=== PATIENT | male | born 1935 | race Hispanic/Latino ===

== ENCOUNTER 2017-12-08 20:52 | Inpatient (IN) | payer MEDICARE ==
[2017-12-08 21:03] VITALS: BMI 29.3
[2017-12-08 21:35] LABS: BASO # 0.04 K/mm3 (0.0-2.0); BASO % 0.6 % (0.0-3.0); EOS # 0.1 (0.0-0.7); EOS % 1.1 % (1.5-5.0); GRAN # 4.85 (1.4-6.5); GRAN % 74.8 % (50.0-68.0); HEMOGLOBIN 16.2 g/dL (14.0-18.0); LYMPH # 1.1 (1.2-3.4); LYMPH % 17.6 % (22.0-35.0); MEAN CELL VOLUME 85.9 fl (80.0-105.0); MEAN CORPUSCULAR HEMOGLOBIN 29.6 pg (25.0-35.0); MEAN CORPUSCULAR HGB CONC 34.5 g/dl (31.0-37.0); MEAN PLATELET VOLUME 11.1 fl (7.0-11.0); MONO # 0.4 (0.1-0.6); MONO % 5.9 % (1.0-6.0); RBC 5.47 10^6/uL (3.5-6.1); RED CELL DISTRIBUTION WIDTH 13.2 % (11.5-14.5); WHITE BLOOD COUNT 6.5 10^3/ul (4.5-11.0)
[2017-12-08 21:40] LABS: INR 1.09 (0.93-1.08); PARTIAL THROMBOPLASTIN TIME 33.3 Seconds (25.1-36.5); PROTHROMBIN TIME 12.5 SECONDS (9.4-12.5)
[2017-12-08 21:42] LABS: ALB/GLOB RATIO 1.4 (1.1-1.8); ALBUMIN 4.7 g/dL (3.0-4.8); ALT/SGPT 30 U/L (7-56); AST/SGOT 32 U/L (17-59); BLOOD UREA NITROGEN 17 mg/dL (7-21); CALCIUM 10.2 mg/dL (8.4-10.5); GFR AFRICAN-AMERICAN > 60; GFR NON-AFRICAN AMERICAN > 60
[2017-12-08 21:53] LABS: TROPONIN I 0.04 ng/mL
[2017-12-08 22:21] LABS: URINE BILIRUBIN NEGATIVE (NEGATIVE); URINE BLOOD TRACE-INTACT (NEGATIVE); URINE GLUCOSE (UA) NEGATIVE (NEGATIVE); URINE LEUKOCYTE ESTERASE NEGATIVE Leu/uL (NEGATIVE); URINE PROTEIN >=300 mg/dL (<30 mg/dL); URINE UROBILINOGEN 0.2 E.U./dL (<1 E.U./dL)
[2017-12-08 22:23] LABS: URINE APPEARANCE CLEAR (CLEAR); URINE COLOR YELLOW (YELLOW)
[2017-12-08 22:34] LABS: URINE BACTERIA MANY (NEG); URINE WBC 0 - 2 /hpf (0-6)
--- NOTE | 2017-12-08 22:57 | ED PDOC ---
Arrival/HPI - General Chief Complaint: Chest Pain Time Seen by Provider: 12/08/17 21:17 Historian: Patient - History of Present Illness Narrative History of Present Illness (Text): 12/08/17 22:53 Mark Mackay is an 81 year old male, whose past medical history includes diabetes, open heart surgery, hypertension, hyperlipidemia, and COPD, who presents to the emergency department complaining of left sided chest pain above the pace maker radiating to his back. Patient notes he was in the shower during onset of symptoms. Patient denies any fever, chills, shortness of breath, nausea, vomiting, diarrhea, neck pain, headache, dizziness or any other complaints. Time/Duration: Prior to Arrival Symptom Onset: Gradual Symptom Course: Unchanged Activities at Onset: Light Context: Home (showering) Past Medical History - Provider Review Nursing Documentation Reviewed: Yes - Tetanus Immunization Tetanus Immunization: Unknown - Cardiac Hx Cardiac Disorders: Yes Hx Hypertension: Yes Hx Pacemaker: Yes Other/Comment: CABG x 5 ways bypassed 2004 - Pulmonary Hx Respiratory Disorders: Yes Hx Asthma: Yes Hx Chronic Obstructive Pulmonary Disease (COPD): Yes Other/Comment: Smoked for 40 ears. Quit 20 ears ago. - Neurological Hx Neurological Disorder: Yes Hx Dizziness: Yes Hx Paralysis: No Hx Syncope: Yes - HEENT Hx Cataracts: Yes (RIGHT EYE(MATURE); LEFT IMMATURE) - Renal Hx Kidney Stones: Yes (SURGERY DONE) - Endocrine/Metabolic Hx Endocrine Disorders: Yes Hx Diabetes Mellitus Type 2: Yes - Hematological/Oncological Hx Blood Disorders: No Hx Blood Transfusions: No - Integumentary Hx Dermatological Disorder: No - Musculoskeletal/Rheumatological Other/Comment: "SOMETHING BETWEEN L4-5 BUT NOT A HERNIATED OR BULDGING DISC." - Gastrointestinal Hx Gastrointestinal Disorders: Yes Hx Gastroesophageal Reflux: Yes - Genitourinary/Gynecological Hx Bladder Cancer: Yes - Psychiatric Hx Psychophysiologic Disorder: No Hx Substance Use: No - Surgical History Hx Cardiac Catheterization: Yes Hx Coronary Artery Bypass Graft: Yes (X5) Hx Orthopedic Surgery: Yes ((SEE COMMENT)) Hx Tonsillectomy: Yes Other/Comment: cataract - Anesthesia Hx Anesthesia: Yes Hx Anesthesia Reactions: No Hx Malignant Hyperthermia: No - Suicidal Assessment Feels Threatened In Home Enviroment: No Family/Social History - Physician Review Nursing Documentation Reviewed: Yes Family/Social History: Unknown Family HX Smoking Status: Former Smoker Hx Alcohol Use: No Hx Substance Use: No Hx Substance Use Treatment: No Allergies/Home Meds Allergies/Adverse Reactions: Allergies iodine Allergy (Severe, Verified 12/08/17 21:02) RASH pneumococcal vaccine Allergy (Severe, Verified 12/08/17 21:02) SWELLING Tetanus Vaccines and Toxoid [Tetanus Vaccines & Toxoid] Allergy (Severe, Verified 12/08/17 21:02) SWELLING Home Medications: Home Meds Medication Instructions Recorded Confirmed Aspirin [Aspirin EC] 81 mg PO DAILY 01/09/15 12/08/17 Budesonide/Formoterol Fumarate 1 puff IH BID 01/09/15 12/08/17 [Symbicort 80-4.5 Mcg Inhaler] Docusate [Colace] 50 mg PO PRN PRN 01/09/15 12/08/17 Omeprazole [Prilosec] 20 mg PO DAILY 01/09/15 12/08/17 Tiotropium [Spiriva] 18 mcg IH DAILY 01/09/15 12/08/17 Gabapentin [Neurontin] 300 mg PO BID 02/13/16 12/08/17 Loratadine [Claritin] 10 mg PO DAILY 03/03/16 12/08/17 Simvastatin [Zocor] 20 mg PO DAILY 03/03/16 12/08/17 metFORMIN [glucOPHAGE] 500 mg PO BID 03/03/16 12/08/17 ARIPiprazole [Abilify] 10 mg PO DAILY 06/24/16 12/08/17 Lisinopril [Zestril] 0.5 tab PO HS 08/31/17 12/08/17 Metoprolol Tartrate [Lopressor] 0.5 tab PO DAILY 08/31/17 12/08/17 Review of Systems - Physician Review All systems were reviewed & negative as marked: Yes - Review of Systems Constitutional: Normal Eyes: Normal ENT: Normal Respiratory: Normal. absent: SOB Cardiovascular: Chest Pain (left sided) Gastrointestinal: Normal. absent: Abdominal Pain, Diarrhea, Nausea, Vomiting Genitourinary Male: Normal. absent: Dysuria, Frequency, Hematuria, Urinary Output Changes Musculoskeletal: Normal, Back Pain. absent: Neck Pain Skin: Normal. absent: Rash Neurological: Normal. absent: Headache, Dizziness Endocrine: Normal Hemo/Lymphatic: Normal Psychiatric: Normal Physical Exam Vital Signs Reviewed: Yes Vital Signs Temp Pulse Resp BP Pulse Ox 12/09/17 00:48 60 18 137/93 H 95 12/08/17 23:00 62 18 138/89 96 12/08/17 22:37 67 146/92 H 12/08/17 21:08 97.8 F 62 18 136/97 H 96 Temperature: Afebrile Blood Pressure: Normal Pulse: Regular Respiratory Rate: Normal Appearance: Positive for: Well-Appearing, Non-Toxic, Comfortable Pain Distress: None Mental Status: Positive for: Alert and Oriented X 3 - Systems Exam Head: Present: Atraumatic, Normocephalic Pupils: Present: PERRL Extroacular Muscles: Present: EOMI Conjunctiva: Present: Normal Mouth: Present: Moist Mucous Membranes Neck: Present: Normal Range of Motion Respiratory/Chest: Present: Clear to Auscultation, Good Air Exchange. No: Respiratory Distress, Accessory Muscle Use Cardiovascular: Present: Regular Rate and Rhythm, Normal S1, S2. No: Murmurs Abdomen: Present: Normal Bowel Sounds. No: Tenderness, Distention, Peritoneal Signs Back: Present: Normal Inspection Upper Extremity: Present: Normal Inspection. No: Cyanosis, Edema Lower Extremity: Present: Normal Inspection. No: Edema Neurological: Present: GCS=15, CN II-XII Intact, Speech Normal Skin: Present: Warm, Dry, Normal Color. No: Rashes Psychiatric: Present: Alert, Oriented x 3, Normal Insight, Normal Concentration Medical Decision Making ED Course and Treatment: 12/08/17 22:59 Impression: 81 year old female presents to the emergency department complaining of left sided chest pain radiating to the back. Plan: -- EKG -- Cardiac Enzyme -- Lipid panal -- Chest X-ray -- Abilify -- ecotrin -- glucOPHAGE -- HumALOG -- Lopressor -- Neurontin -- Spriva -- Zestril -- Reassess and disposition Progress Notes: case d/w dr hernandez will tle obs for cp chest x ray neg 12/09/17 04:02 - Lab Interpretations Lab Results: 12/08/17 21:20 12/08/17 21:20 Lab Results 12/08/17 22:15: Urine Color Yellow, Urine Appearance Clear, Urine pH 6.0, Ur Specific [place] >= 1.030, Urine Protein >=300 H, Urine Glucose (UA) Negative, Urine Ketones 40 H, Urine Blood Trace-intact H, Urine Nitrate Negative, Urine Bilirubin Negative, Urine Urobilinogen 0.2, Ur Leukocyte Esterase Negative, Urine RBC 2 - 5, Urine WBC 0 - 2, Ur Epithelial Cells None, Urine Bacteria Many , Urine Other Uyeast 12/08/17 21:20: Triglycerides 68, Cholesterol 135, LDL Cholesterol Direct 64, HDL Cholesterol 49 12/08/17 21:20: PT 12.5, INR 1.09 H, APTT 33.3 12/08/17 21:20: Sodium 139, Potassium 4.3, Chloride 100, Carbon Dioxide 26, Anion Gap 17, BUN 17, Creatinine 0.8, Est GFR ( Amer) > 60, Est GFR (Non- Af Amer) > 60, Random Glucose 184 H, Calcium 10.2, Magnesium 1.7, Total Bilirubin 0.9, AST 32, ALT 30, Alkaline Phosphatase 95, Lactate Dehydrogenase 485, Total Creatine Kinase 34 L, Troponin I 0.04 D, Total Protein 8.0, Albumin 4.7, Globulin 3.3, Albumin/Globulin Ratio 1.4 12/08/17 21:20: WBC 6.5 D, RBC 5.47, Hgb 16.2, Hct 47.0, MCV 85.9, MCH 29.6, MCHC 34.5, RDW 13.2, Plt Count 154, MPV 11.1 H, Gran % 74.8 H, Lymph % (Auto) 17.6 L, [place] % (Auto) 5.9, Eos % (Auto) 1.1 L, Baso % (Auto) 0.6, Gran # 4.85, Lymph # (Auto) 1.1 L, [place] # (Auto) 0.4, Eos # (Auto) 0.1, Baso # (Auto) 0.04 - RAD Interpretation Radiology Orders: 12/08/17 21:18 CHEST PORTABLE [RAD] Stat - EKG Interpretation EKG Interpretation (Text): 12/09/17 04:03 100 pace rhythm rate 60 - Medication Orders Current Medication Orders: Aripiprazole (Abilify) 10 mg PO DAILY [facility] PRN Reason: Protocol Aspirin (Ecotrin) 81 mg PO DAILY [facility] Atorvastatin Calcium (Lipitor) 10 mg PO DIN [facility] Gabapentin (Neurontin) 300 mg PO BID [facility] PRN Reason: Protocol Last Admin: 12/08/17 23:00 Dose: 300 mg Re-Assess: Reassess Psych Meds Document 12/09/17 00:00 FDE (Rec: 12/09/17 01:46 FDE [id number]) Reassess Psych Med Effective Insulin Human Lispro (Humalog Med) 0 units SC ACHS [facility] PRN Reason: Protocol Lisinopril (Zestril) 10 mg PO HS [facility] Metformin HCl (Glucophage) 500 mg PO BID [facility] Metoprolol Tartrate (Lopressor) 25 mg PO DAILY [facility] Tiotropium [place] (Spiriva) 18 mcg IH DAILY [facility] Discontinued Medications Lisinopril (Zestril) 0.5 mg PO HS [facility] Metoprolol Tartrate (Lopressor) 12.5 mg PO STAT STA Stop: 12/08/17 22:23 Last Admin: 12/08/17 22:37 Dose: 12.5 mg MAR Pulse and Blood Pressure Document 12/08/17 22:37 AD (Rec: 12/08/17 22:37 AD [id number]) Pulse Pulse Rate (60-90) 67 Blood Pressure Blood Pressure (100/60-150/90) 146/92 Metoprolol Tartrate (Lopressor) 0.5 mg PO DAILY [facility] - Scribe Statement The provider has reviewed the documentation as recorded by the Scribe Documented by Alyssa Solitario acting as a scribe for Anthony Mccarty MD. Disposition/Present on Arrival - Present on Arrival Any Indicators Present on Arrival: No History of DVT/PE: No History of Uncontrolled Diabetes: No Urinary Catheter: No History of Decub. Ulcer: No History Surgical Site Infection Following: None - Disposition Have Diagnosis and Disposition been Completed?: Yes Diagnosis: Chest pain Disposition: HOSPITALIZED Disposition Time: 22:00 Condition: FAIR
[2017-12-09 00:58] LABS: HDL CHOLESTEROL 49 mg/dL (29-60)
[2017-12-09 01:09] LABS: LDL CHOLESTEROL 64 mg/dL (0-129)
--- NOTE | 2017-12-09 04:11 | HP ---
HISTORY OF PRESENT ILLNESS: The patient is 81 years old. He states when he went to take shower when he was trying to clean his back, he suddenly developed a left-sided chest pain around his pacemaker site. Since then, he has been worried that there is some malfunctioning of his pacemaker. He developed chest pain, probably got worried and when he checked his blood pressure that he found was 160. He called the office and they advised him to take extra lisinopril that he took around 6:00 o'clock. I got a call around 7:30 that his chest pain has increased and his blood pressure has gone up to 190/110, so I advised him to go to emergency room for further evaluation and pacemaker interrogation. Denies any fever or chills. No nausea or vomiting. No cough or congestion. PAST MEDICAL HISTORY: Significant for; 1. Coronary artery disease, status post open heart surgery almost 15 years ago. 2. Epz-qoglsuh-xuqrhecgx diabetes. 3. Degenerative disk disease. 4. History of hyphema of the nose. 5. Lumbosacral radiculopathy. 6. Hypertension. 7. Multiple episodes of syncope and was found to have sick sinus syndrome, so he had pacemaker placed. 8. Hyperlipidemia. ALLERGY: HE IS ALLERGIC TO IODINE, PNEUMOCOCCAL VACCINE, TETANUS VACCINE AND TOXOID. MEDICATIONS AT HOME: The patient is on metformin 500 twice a day, Abilify 10 mg daily, Spiriva, simvastatin 20 mg daily, Prilosec 20 mg daily, metoprolol 25 daily, loratadine 10 mg daily, gabapentin 300 twice a day, Colace 50 mg daily and aspirin 81 daily. SOCIAL HISTORY: He is . Lives with his . He used to be a heavy smoker for almost 40 years and he quit 25 years ago. Socially drinks. REVIEW OF SYSTEMS: Significant for left-sided chest pain and feels lightheaded. PHYSICAL EXAMINATION: GENERAL: He is awake, alert, oriented, communicative. VITAL SIGNS: He is afebrile, pulse 62, respirations 18, blood pressure 146/92. LUNGS: Bilateral good airflow. No rhonchi or crackle. HEART: S1 and S2 audible. No murmur. ABDOMEN: Soft, obese, nontender. No rebound. No guarding. NEUROLOGIC: He is awake, alert, oriented, communicative. LABORATORY EXAM: WBC is 6.5, hemoglobin is 16.2, hematocrit 47, platelet 154. PT 12.5, INR 1.09, PTT 33.3. Chemistry: Sodium 139, potassium 3.3, chloride 100, CO2 of 26, BUN 17, creatinine 0.8, blood sugar of 184. LFTs are within normal limits. CPK 34, troponin 0.04. Urinalysis is unremarkable. X-ray chest is unremarkable. I got a call from that his pacemaker was interrogated and seems to be functioning well. ASSESSMENT: 1. Chest pain. Rule out underlying coronary ischemia. 2. History of coronary artery disease, status post open heart surgery. 3. Insulin-dependent diabetes. 4. Hypertension. 5. Hyperlipidemia. PLAN: The patient will be placed in observation. We will monitor his blood pressure. Will be evaluated by Dr. Goznalez in the a.m. We will follow up his troponin and we will reevaluate in the a.m. If the patient remains stable, possible early discharge. Talia Tom MD
[2017-12-09 07:03] LABS: FREE T4 1.05 ng/dL (0.78-2.19)
[2017-12-09] MEDS ORDERED: Insulin Lispro (humaLOG) MEDIUM Coverage SC SCH (07:30)
[2017-12-09 07:31] LABS: ALB/GLOB RATIO 1.3 (1.1-1.8); ALBUMIN 3.6 g/dL (3.0-4.8); ALT/SGPT 24 U/L (7-56); AST/SGOT 69 U/L (17-59); BLOOD UREA NITROGEN 15 mg/dL (7-21); CALCIUM 9.5 mg/dL (8.4-10.5); GFR AFRICAN-AMERICAN > 60; GFR NON-AFRICAN AMERICAN > 60; TROPONIN I 7.56 ng/mL
--- NOTE | 2017-12-09 08:40 | RAD ---
HISTORY: cp COMPARISON: 06/26/2016 FINDINGS: LUNGS: No active pulmonary disease. PLEURA: No significant pleural effusion identified, no pneumothorax apparent. CARDIOVASCULAR: Mild cardiomegaly. Single lead pacemaker. OSSEOUS STRUCTURES: Sternal wires VISUALIZED UPPER ABDOMEN: Normal. OTHER FINDINGS: None. IMPRESSION: No active disease.
[2017-12-09] MEDS ORDERED: Potassium Chloride 20 mEq ER Tab PO ONE (08:53)
[2017-12-09] MEDS: Enoxaparin 80 mg Syringe SC SCH ×2 (08:56→19:57)
[2017-12-09] MEDS: Insulin Reg-LOW-Coverage SC SCH ×3 (11:42→22:33)
[2017-12-09] MEDS ORDERED: Pantoprazole 40 mg EC Tab PO ONE (13:06)
[2017-12-09] MEDS: Tiotropium 18 mcg Cap For Inhalation IH SCH (13:32)
--- NOTE | 2017-12-09 15:31 | PN ---
DATE: SUBJECTIVE: He was admitted with high blood pressure and chest pain. Evaluated by the addressograph operator. Plan for cardiac cath tomorrow. His pacemaker was interrogated and found to be working and functioning normal. PHYSICAL EXAMINATION: VITAL SIGNS: He is afebrile, pulse 63, respirations 16, blood pressure 145/98. LUNGS: Bilateral good airflow. No rhonchi or crackle. HEART: S1 and S2 audible. ABDOMEN: Soft. Nontender. Obese. No hepatosplenomegaly. NEUROLOGIC: He is awake, alert, oriented, communicative. EXTREMITIES: Bilateral legs, no edema. LABORATORY EXAM: Sodium 142, potassium 3.7, chloride 105, CO2 of 29, BUN 15, creatinine 0.8, blood sugar of 128. First troponin was 0.04, followup is 7.56. ASSESSMENT: 1. Ahg-AE-xmjoddtqn myocardial infarction. 2. Hypertension. 3. Hyperlipidemia. 4. Coronary artery disease, status post open heart surgery. 5. History of sick sinus syndrome, status post pacemaker placement. PLAN: The patient is on Plavix, Lovenox, beta talha, Lipitor. He is scheduled for a cardiac cath in the a.m. Talia Tom MD
--- NOTE | 2017-12-09 15:50 | CARD ---
APPROVED REPORT EKG Measurement Heart [id number] P50 [id number] <Conclusion> Electronic ventricular pacemaker: V. Paced with 1 PVC.
--- NOTE | 2017-12-09 20:17 | CON ---
DATE: CONSULT SERVICE: Cardiology. REASON FOR CONSULTATION: Chest pain, unstable angina, acute coronary syndrome, non-ST segment myocardial infarction, coronary artery disease, status post CABG, status post permanent pacemaker. BRIEF CLINICAL HISTORY: This is an 81-year-old , used to follow at the [facility], history of hypertension, hyperlipidemia, coronary artery disease, status post 5-vessel bypass 12 to 13 years ago at [facility], [place] by Dr. Prakash Taylor, history of sick sinus syndrome, complete heart block on 06/24/2016, status post permanent pacemaker, who remained fairly stable until yesterday afternoon at 6 o'clock, he felt sharp pain at the pacemaker site. Blood pressure was checked, found to be 160, contacted Dr. Tom, advised to give an extra dose of lisinopril. Later on, the blood pressure did not improve and blood pressure went to 190/110 as well as the chest pain, so advised to come to the emergency room to check it out. Pacemaker interrogation was done, found to be perfectly normal, single chamber VVI, 90% pacing, no episodes of arrhythmia noted. Battery life is 8 years. First troponin was negative. Repeat troponin is 7.5. The patient denies any episode of chest pain now. PAST MEDICAL HISTORY: Significant for hypertension, hyperlipidemia, type 2 diabetes, coronary artery disease, status post coronary artery bypass surgery, 4-5 vessels bypass done at [facility], [place] by Dr. Prakash Taylor, status post permanent pacemaker on 06/25/2016, single chamber VVI after having complete heart block. [employer] Adapta VVIR was done. PREVIOUS CARDIAC WORKUP: As follows: The patient had a stress test on 01/12/2015 that shows essentially normal myocardial perfusion study, ejection fraction 74% dated 01/12/2015. The patient was attempted JULIETA, but could not be completed because of small difficulty to assess the severity of the mitral valve area. Later on, regular echo was done that showed normal chamber size, ejection fraction 60-65%, trace aortic regurgitation, mild aortic stenosis with aortic sclerosis. Moderate mitral valve stenosis, valve area 1.2 cm2, mild mitral regurgitation, RV systolic pressure 38, mild pulmonary insufficiency. Right ventricular systolic pressure of 38 dated 03/06/2016. As mentioned, history of coronary artery bypass surgery, 4-5 vessel bypass at [facility] by Dr. Prakash Taylor. SOCIAL HISTORY: Denies any history of alcohol abuse, , lives with . Used to smoke, quit 40 years ago, almost 40-pack year history. Socially drinks. No history of substance abuse. CURRENT MEDICATIONS: The patient at home is taking metformin 500 b.i.d., Abilify 10 mg daily, Spiriva, simvastatin 20 mg, Prilosec, metoprolol, loratadine, gabapentin, Colace and aspirin. ALLERGIES: PNEUMOCOCCAL VACCINE, TETANUS VACCINE AND TOXOID. REVIEW OF SYSTEMS: As per HPI. PHYSICAL EXAMINATION: As follows: GENERAL: Height of the patient 5 feet 7 inches, weight of the patient 182 pounds, body mass index 30 kg/m2. Rest of the examination as follows: VITAL SIGNS: Temperature afebrile, heart rate 64, blood pressure 110/73. HEENT: PERRLA. Extraocular muscles intact. NECK: Supple. No carotid bruit or thyromegaly. CHEST: Clear to auscultation. HEART: S1, S2, regular. ABDOMEN: Soft. EXTREMITIES: Clubbing and cyanosis negative. EKG showed V-paced rhythm, underlying normal sinus. LABORATORY DATA: Blood workup, WBC 6.5, hemoglobin , hematocrit 47, platelet count 154. Chemistry shows sodium 142, potassium 3.7, chloride 105, carbon dioxide 29, anion gap of 13, BUN 15, creatinine 0.8. Random glucose 128, troponin 7.56. IMPRESSION: Non-ST segment myocardial infarction, acute coronary syndrome, unstable angina, diabetes, hypertension, hyperlipidemia, obesity, increased body mass index, history of coronary artery disease, history of coronary artery bypass graft 12 to 13 years ago, 4-5 vessels bypass at [facility], [place] by Dr. Prakash Taylor. History of complete heart block on 06/24/2016, status post single chamber VVI pacemaker. Last night, the patient admitted with pacemaker site chest pain, pacemaker interrogation done, 99% pacing. No issues, battery life 8 years. No tachyarrhythmia was noted. No issues. RECOMMENDATION: We will start aspirin, Plavix, give Lovenox 2 doses to treat unstable angina and cardiac catheterization tomorrow. Discussed with the patient's , Cony Mackay. The patient is scheduled for cardiac catheterization tomorrow at 11 a.m. We will keep n.p.o. after 12 midnight and we will call the [facility] [place] to operative report. Apparently, it looks like the patient has RODRÍGUEZ to LAD, left radial and saphenous graft to the circumflex and RCA system. Awaiting further detailed report to be faxed. Further recommendation after the cardiac catheterization. We will discuss with Dr. Tom. Pacemaker has no issue, an interrogation done last night. Full interrogation report is in the chart. Thank you, Dr. Tom, for providing us the opportunity in taking care of the patient, Mark Mackay. Gigi Rust MD
[2017-12-10] MEDS: Pantoprazole 40 mg EC Tab PO SCH (05:16)
[2017-12-10 06:22] LABS: HEMOGLOBIN 15.1 g/dL (14.0-18.0); MEAN CELL VOLUME 85.2 fl (80.0-105.0); MEAN CORPUSCULAR HEMOGLOBIN 29.4 pg (25.0-35.0); MEAN CORPUSCULAR HGB CONC 34.6 g/dl (31.0-37.0); MEAN PLATELET VOLUME 11.1 fl (7.0-11.0); RBC 5.13 10^6/uL (3.5-6.1); RED CELL DISTRIBUTION WIDTH 13.5 % (11.5-14.5); WHITE BLOOD COUNT 4.3 10^3/ul (4.5-11.0)
[2017-12-10 07:26] LABS: ALB/GLOB RATIO 1.3 (1.1-1.8); ALBUMIN 3.8 g/dL (3.0-4.8); ALT/SGPT 32 U/L (7-56); AST/SGOT 51 U/L (17-59); BLOOD UREA NITROGEN 13 mg/dL (7-21); CALCIUM 9.7 mg/dL (8.4-10.5); GFR AFRICAN-AMERICAN > 60; GFR NON-AFRICAN AMERICAN > 60; TROPONIN I 4.07 ng/mL
[2017-12-10] MEDS: Insulin Reg-LOW-Coverage SC SCH ×4 (07:43→22:34)
--- NOTE | 2017-12-10 09:50 | CP.PCM.PN ---
Subjective - Date & Time of Evaluation Date of Evaluation: 12/10/17 Time of Evaluation: 07:45 - Subjective Subjective: Seen and examined by Dr. Rust Reason for consultation and follow up: Chest pain,unstable angina, acute coronary syndrome, non-ST segment myocardial infarction, coronary artery disease , status post coronary artery bypass grafting 12-13 years ago,status post permanent pacemaker for sick sinus syndrome, , type 2 diabetes mellitus, history of hypertension and hyperlipidemia, ex-smoker. Subjective: denies chest pain,denies shortness of breath,comfortable in no distress, verbalized to be doing for a procedure Objective - Vital Signs/Intake and Output Vital Signs (last 24 hours): Temp Pulse Resp BP Pulse Ox 97.8 F 75 18 148/85 95 12/10/17 06:00 12/10/17 06:00 12/10/17 06:00 12/10/17 06:00 12/10/17 06:00 Intake and Output: 12/10/17 12/10/17 06:59 18:59 Intake Total 340 Output Total 1050 Balance -710 - Medications Medications: Current Medications Aripiprazole (Abilify) 10 mg PO DAILY [facility] PRN Reason: Protocol Last Admin: 12/09/17 09:14 Dose: 10 mg Aspirin (Ecotrin) 81 mg PO DAILY [facility] Last Admin: 12/10/17 09:38 Dose: 81 mg Atorvastatin Calcium (Lipitor) 10 mg PO DIN [facility] Last Admin: 12/09/17 17:20 Dose: 10 mg Clopidogrel Bisulfate (Plavix) 75 mg PO DAILY [facility] Last Admin: 12/10/17 09:38 Dose: 75 mg Gabapentin (Neurontin) 300 mg PO BID [facility] PRN Reason: Protocol Last Admin: 12/09/17 17:20 Dose: 300 mg Insulin Human Regular (Humulin R Low) 0 units SC ACHS [facility] PRN Reason: Protocol Last Admin: 12/10/17 07:43 Dose: Not Given Lisinopril (Zestril) 10 mg PO HS [facility] Last Admin: 12/09/17 22:33 Dose: 10 mg Metoprolol Tartrate (Lopressor) 25 mg PO BID [facility] Last Admin: 12/09/17 18:12 Dose: 25 mg Pantoprazole Sodium (Protonix Ec Tab) 40 mg PO 0600 [facility] Last Admin: 12/10/17 05:16 Dose: 40 mg Tiotropium [place] (Spiriva) 18 mcg IH DAILY [facility] Last Admin: 12/09/17 13:32 Dose: 18 mcg - Labs Labs: 12/10/17 05:20 12/10/17 05:20 PT 12.5 SECONDS (9.4-12.5) 12/08/17 21:20 INR 1.09 (0.93-1.08) H 12/08/17 21:20 APTT 33.3 Seconds (25.1-36.5) 12/08/17 21:20 - Constitutional Appears: Well, No Acute Distress - Head Exam Head Exam: NORMAL INSPECTION - Eye Exam Eye Exam: Normal appearance Pupil Exam: NORMAL ACCOMODATION - ENT Exam ENT Exam: Mucous Membranes Moist, Normal Exam - Neck Exam Neck Exam: Normal Inspection - Respiratory Exam Respiratory Exam: Clear to Ausculation Bilateral, NORMAL BREATHING PATTERN - Cardiovascular Exam Cardiovascular Exam: REGULAR RHYTHM, +S1, +S2 - GI/Abdominal Exam GI & Abdominal Exam: Soft, Normal Bowel Sounds - Extremities Exam Extremities Exam: Full ROM, Normal Capillary Refill - Neurological Exam Neurological Exam: Alert, Awake, Oriented x3 - Psychiatric Exam Psychiatric exam: Normal Affect, Normal Mood - Skin Skin Exam: Intact, Normal Color, Warm Assessment and Plan - Assessment and Plan (Free Text) Assessment: IMPRESSION: 81 year old who had chest pian and advised to go to the ER. Blood pressure was elevated at that time. Unstable angina, acute coronary syndrome, non-ST segment myocardial infarction, coronary artery disease, status post coronary artery bypass grafting 12-13 years ago,status post permanent pacemaker for sick sinus syndrome, , type 2 diabetes mellitus, history of hypertension and hyperlipidemia, former smoker 40 pack years, socially drinks Plan: Kept NPO For cardiac catheterization today Continue ASA 81 ng daily,Lipitor 10 mg daily, Plavix 75 mg daily,Lopressor 25 mg BID,Zestril 10 mg daily Stable blood pressure and heart rate Lab results reviewed-potassium WNL Troponin trending down- 7.56 initial, 4.07 today No chest pain Will follow up Plan and treatment discussed with Dr. Rust
[2017-12-10] MEDS ORDERED: Lidocaine 2% Inj (20ml) ONE (10:27)
[2017-12-10] MEDS ORDERED: Iodixanol 320 MG/ML 100 ML BOTTLE IV ONE ×2 (10:28→12:47)
[2017-12-10] MEDS ORDERED: Iohexol 350mgl/ml 50 ML ONE (10:28)
[2017-12-10] MEDS ORDERED: DiphenhydrAMINE 50 mg/ml Inj ONE (10:28)
[2017-12-10] MEDS ORDERED: Midazolam 2 MG/2 ML VIAL ONE ×2 (10:28→11:01)
[2017-12-10] MEDS ORDERED: Iodixanol 320 MG/ML 200 ML BOTTLE IV ONE (10:28)
[2017-12-10] MEDS ORDERED: Nitroglycerin 50mg in D5W 50 MG/250 ML BOTTLE IV ONE (10:29)
[2017-12-10] MEDS ORDERED: HEPARIN SODIUM/NS 2,000 ML IV ONE (10:29)
[2017-12-10] MEDS ORDERED: Famotidine 20mg/50ml 20 MG/50 ML BAG IVPB ONE (10:29)
[2017-12-10] MEDS ORDERED: Eptifibatide 20 mg/10mL Inj IVP ONE (11:54)
[2017-12-10] MEDS ORDERED: HEPARIN SODIUM/NS 1,000 ML IV ONE (12:03)
[2017-12-10] MEDS ORDERED: Pantoprazole 40 mg EC Tab PO ONE (13:06)
[2017-12-10] MEDS: Sodium Chloride 0.9% 1,000 ML IV SCH (14:14)
[2017-12-10] MEDS: Tiotropium 18 mcg Cap For Inhalation IH SCH (14:15)
--- NOTE | 2017-12-10 14:19 | CPOSTOP ---
DATE: 12/10/2017 PHYSICIAN: Gigi Rust MD. 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 TYPE OF ANESTHESIA: Moderate conscious sedation, started with 1 mg of Versed and 50 of fentanyl. Total dose was given 3 mg of Versed and 100 of fentanyl. PRE-PROCEDURE DIAGNOSES: Unstable angina, non-ST segment myocardial infarction. PROCEDURE PERFORMED: 1. Left heart catheterization. 2. Left internal mammary injection. 3. Saphenous venous graft injection. 4. Plain balloon angioplasty of right coronary artery. FINDINGS: Left main essential for significant disease, bifurcated LAD and circumflex, LAD 100% occluded wxuewotu-ky-bhs segment, Circumflex and OM1 100% occluded, 60% circumflex is stenosed distal, LPDA has 70% stenosis. Right coronary artery, tortuous proximally and mid right coronary artery 99% stenosis noted. Graft as follows: RODRÍGUEZ to LAD patent, but the saphenous graft which is sequential to OM2, OM3 and LPDA has multiple stenoses in the mid portion and trifurcation very complex, not suitable for PCI, high risk of post-procedure TN. Left radial is occluded. Preserved LV function, ejection fraction 60% to 65%. No gradient across the aortic valve noted. In view of above, PTCA of [place] RCA was contemplated and plain balloon angioplasty, stent could not take the stent down because of very tortuous and calcified vessel. FINAL DIAGNOSES: Triple vessel disease, patent left internal mammary artery, multiple stenoses in saphenous vein graft sequential to obtuse marginal 2, obtuse marginal 3 and left posterior descending artery, occluded left radial to obtuse marginal 1. POST PROCEDURE CONDITION: Patient's condition is stable. VASCULAR ACCESS: Right femoral groin. CLOSURE DEVICE: Mynx applied. TOTAL RADIATION DOSE: 22343.5 milligray unit. TOTAL FLUORO TIME: 36.8 seconds. RECOMMENDATIONS IN THE PLAIN BALLOON ANGIOPLASTY: We will continue aspirin and Plavix mandatory for 4 weeks. After this, Plavix will come off and continue baby aspirin alone. Possible discharge home in a.m. We will discuss with Dr. Tom. Thank you, Dr. Tom, for providing us the opportunity in taking care of the patient, Mark Mackay. Gigi Rust MD [facility] # [id number] MYESHA
--- NOTE | 2017-12-10 16:02 | PN ---
DATE: SUBJECTIVE: The patient is 81 years old who was admitted with chest pain, had pacemaker interrogation done, functioning well. Going for cardiac cath today. PHYSICAL EXAMINATION: GENERAL: He is awake, alert, oriented, communicative. VITAL SIGNS: He is afebrile, pulse 75, respirations 18, blood pressure 148/85. LUNGS: Bilateral good airflow. No rhonchi or crackle. HEART: S1 and S2 audible. ABDOMEN: Soft, nontender. No rebound, no guarding. NEUROLOGIC: The patient is awake, alert, oriented, communicative. LABORATORY EXAM: WBC is 4.3, hemoglobin 15, hematocrit 43, platelets 142. Chemistry: Sodium 141, potassium 4, chloride 103, CO2 of 29. BUN 13, creatinine 0.8. Blood sugar of 126. Troponin 4.07. ASSESSMENT: 1. Mko-OM-fvbseimst myocardial infarction. 2. Chest pain. 3. Status post pacemaker placement. 4. Nob-kjgzaid-qymnrqdky diabetes. 5. Degenerative disk disease. PLAN: The patient will go for cardiac cath. We will continue him on current medication. We will decide after catheterization about disposition plan. Talia Tom MD
--- NOTE | 2017-12-10 17:39 | CARD ---
APPROVED REPORT Procedure(s) performed: Left Heart Catheterization RODRÍGUEZ Angiogram SVG Angiogram PTCA with Balloon Angioplasty of Mid RCA HISTORY The patient is a 81 year-old with a history of : diabetes mellitus with insulin treatment , previous diagnostic cath, tobacco history() : The patient is a former smoker , previous PCI (The PCI date was 07/31/2005), hypertension , previous CABG (The CABG date was 09/28/2005), dyslipidemia . INDICATION The indication(s) include : unstable angina , non-STEMI . CASE TECHNIQUE The patient was brought urgently to the Cardiac Catheterization Laboratory in a fasting state and was prepped and draped in a sterile manner. The right femoral groin was infiltrated with 2% Lidocaine subcutaneous anesthesia. A 6 Fr x 23 cm Carly sheath was inserted into the right femoral artery without difficulty. Coronary angiography was performed using coronary diagnostic catheters. The left coronary system was accessed and visualized with a Diagnostic ,6 Fr JL 4 catheter. The right coronary system was accessed and visualized with a Diagnostic ,6 Fr JR 4 catheter. The left ventricle was accessed and visualized with a pig tail catheter. The left internal mammary artery was accessed and visualized with a Diagnostic ,6 Fr JR 4 catheter. The saphenous vein graft was accessed and visualized with a Diagnostic ,6 Fr JR 4 catheter. Left ventricular/Aortic Valve gradient assessed on pullback. Left ventriculogram was performed in PACHECO projection. Closure device was deployed with a 6 Fr / 7 Fr MynxGrip without any complications. The patient tolerated the procedure well and there were no complications associated with the procedure. Vessel Analysis The patient's coronary anatomy is co-dominant. The left main coronary artery is a large size vessel with diffuse calcification noted throughout this vessel and without significant stenosis. The left main bifurcates to the left anterior descending and circumflex. The left anterior descending artery is a medium size vessel with diffuse calcification noted throughout this vessel and with significant stenosis. There is a 100% stenosis . The first diagonal branch is a medium size vessel with diffuse calcification noted throughout this vessel and with significant stenosis. There is a 100% stenosis in the ostial segment. The circumflex artery is a medium size vessel with diffuse calcification noted throughout this vessel and with significant stenosis. There is a 60% stenosis in the mid segment. The first obtuse marginal branch is a medium size vessel occluded. There is a 100% stenosis in the ostial segment. The second obtuse marginal branch is a medium size vessel occluded. There is a 100% stenosis in the ostial segment. The left posterior descending artery is a medium size vessel with diffuse calcification noted throughout this vessel and without significant stenosis. There is a 70% stenosis in the proximal segment. The right coronary artery is a medium size vessel with diffuse calcification noted throughout this vessel and with significant stenosis. There is a 99% stenosis in the mid segment. heavily calcified The right posterior descending artery is a medium size vessel with diffuse calcification noted throughout this vessel and with significant stenosis. diffusely diseased The left internal mammary artery to the mid left anterior descending artery segment is patent . The saphenous vein graft to the Sequential to OM2, OM3, and LPDA patent but Multiple high gradestenoses in body of graft, which are not suitablie for PCI even with Filter wire. . left Radial to OM1 possibly occluded, can not be canulated. Left Ventricle The left ventricle is normal in size with normal contractility. There was no cardiomyopathy. The left ventricular ejection fraction is estimated to be 55%. The left ventricular end diastolic pressure is 15 mmHg. PCI Technique Lesion Anticoagulation was achieved with Heparin. Percutaneous coronary intervention was performed on the mid right coronary artery. The lesion stenosis prior to intervention was 99% with DEREK 1 flow. A 6 Fr AL 0.75 Guide Catheter was used to engage the ostium. A Luge 182 Interventional Guidewire was used to cross the lesion. BALLOON DILATION A Balloon catheter 1.5 x 6 mm Sprinter RX was inserted and inflated up to 12.00atm for 18seconds. Multile POBA with upsizing Balloon with 2.5/15 treck at 22 atmosphere applied STENT DEPLOYMENT could not take stent b/c of tortousity and heavily calcified vessel of vessel a Final angiography reveals 40 % stenosis with DEREK 3 flow. Conclusion Multivessel CAD Patent Rodríguez to lAD Patent SVG sequential to OM2,OM3 and LPDA patent but multiple stenosis in grafts and not suitable for PCI ( high risk and bad out come).Even with Filter wire. Preserved Lv Fx. Ef-555, EDP-15 mmof hg. No gradient across Aortic valve, by cath. Recommendations Aggressive Medical TherapyCardiac Risk Reduction Program Mandatory continue ASA and Plavix for one month then Baby ASa alone Cc; drs. Tom/ Carlos.
[2017-12-10 20:31] LABS: BASO # 0.01 K/mm3 (0.0-2.0); BASO % 0.1 % (0.0-3.0); GRAN # 7.24 (1.4-6.5); HEMOGLOBIN 16.4 g/dL (14.0-18.0); LYMPH # 0.6 (1.2-3.4); MEAN CORPUSCULAR HEMOGLOBIN 29.5 pg (25.0-35.0); MEAN CORPUSCULAR HGB CONC 34.7 g/dl (31.0-37.0); MONO # 0.2 (0.1-0.6); MONO % 2.9 % (1.0-6.0); RBC 5.55 10^6/uL (3.5-6.1); RED CELL DISTRIBUTION WIDTH 13.2 % (11.5-14.5)
[2017-12-10 20:46] LABS: BLOOD UREA NITROGEN 18 mg/dL (7-21); CALCIUM 9.9 mg/dL (8.4-10.5); GFR AFRICAN-AMERICAN > 60; GFR NON-AFRICAN AMERICAN > 60
[2017-12-11] MEDS: Pantoprazole 40 mg EC Tab PO SCH (05:13)
[2017-12-11 05:24] VITALS: O2SAT 95
[2017-12-11 06:58] LABS: MEAN CELL VOLUME 84.5 fl (80.0-105.0); MEAN CORPUSCULAR HEMOGLOBIN 28.9 pg (25.0-35.0); MEAN CORPUSCULAR HGB CONC 34.2 g/dl (31.0-37.0); MEAN PLATELET VOLUME 10.9 fl (7.0-11.0); RBC 4.98 10^6/uL (3.5-6.1); RED CELL DISTRIBUTION WIDTH 13.4 % (11.5-14.5); WHITE BLOOD COUNT 9.2 10^3/ul (4.5-11.0)
[2017-12-11 07:18] LABS: HEMOGLOBIN 14.4 g/dL (14.0-18.0)
[2017-12-11 07:42] LABS: ALB/GLOB RATIO 1.5 (1.1-1.8); ALBUMIN 3.8 g/dL (3.0-4.8); ALT/SGPT 29 U/L (7-56); AST/SGOT 30 U/L (17-59); BLOOD UREA NITROGEN 21 mg/dL (7-21); CALCIUM 9.4 mg/dL (8.4-10.5); GFR AFRICAN-AMERICAN > 60; GFR NON-AFRICAN AMERICAN > 60
[2017-12-11] MEDS: Insulin Reg-LOW-Coverage SC SCH ×2 (08:49→11:51)
[2017-12-11] MEDS: Tiotropium 18 mcg Cap For Inhalation IH SCH (09:20)
[2017-12-11] MEDS: Sodium Chloride 0.9% 1,000 ML IV SCH (09:22)
--- NOTE | 2017-12-11 10:41 | CARD ---
APPROVED REPORT EKG Measurement Heart [id number] NH 210P-4 [id number] <Conclusion> Sinus rhythm with 1st degree AV block Right bundle branch block STTW changes C/W ECG 12/08/17: No V. pacing now.
[2017-12-11 11:44] VITALS: BP 167/101
[2017-12-11 12:14] VITALS: PULSE 73; RESP 20; TEMP 98.1
--- NOTE | 2017-12-11 23:35 | PN ---
DATE: 12/10/2017 LOCATION: Patient in room 267, bed 1. REASON FOR CONSULTATION: Followup chest pain, unstable angina, acute coronary syndrome, qcy-DW-givconc elevation myocardial infarction, status post CABG, status post permanent pacemaker insertion, hypertension, hyperlipidemia. SUBJECTIVE: The patient was admitted with a chest pain at pacemaker site and first troponin was normal, second troponin was 7.5. The patient now status post plain balloon angioplasty. Denies any chest pain, shortness of breath or palpitation. PHYSICAL EXAMINATION VITAL SIGNS: Blood pressure is 133/89, respiration is 20, pulse 73, temperature 98.1. HEENT: Head is normocephalic. Eyes: Pupils normal. Conjunctivae normal. Nose and throat normal. NECK: JVP low. Carotids equal. THORAX: AP diameter normal. LUNGS: Clear. CARDIOVASCULAR: S 1 and S2. ABDOMEN: Soft. No tenderness. No organomegaly. Patient had catheter in the right groin, pulses are felt normally, cath site is healing well. LABORATORY DATA: WBC 9.2, hemoglobin 14.4, hematocrit 42.1, platelet 180. Sodium 141, potassium 4.2, BUN 21, creatinine 0.9, random sugar 124. Calcium, phosphorous, magnesium, AST, ALT, total protein, albumin normal. Patient had cardiac cath on 12/10/2017. It showed left main is without significant disease. LAD 100% occluded sqauyecq-hs-ndb segment, circumflex and OM-1 also 100% occluded. Circumflex shows distal stenosis about 60%, LPDA has 70% stenosis. Right coronary artery very tortuous proximally, and mid right coronary artery 99% stenosis noted. Graft were as follows: RODRÍGUEZ to LAD patent, but saphenous graft which is sequential to OM-2 and OM-3 and LPDA have multiple stenoses in the mid portion, and trifurcation very complex, not suitable for PCI, it will be a high risk for PCI. Left radial artery is occluded. Preserved LV function, ejection fraction 60% to 65%. No gradient across the aortic valve noted. In view of above, PTCA of [place] RCA was done and only plain balloon angioplasty was able to be achieved, a stent could not be advanced because of a very tortuous vessel and very heavily calcified vessel. DIAGNOSES: 1. Coronary artery disease. 2. Ffl-ZV-qvwyjtsmr myocardial infarction. 3. Status post plain balloon angioplasty of right coronary artery. 4. Hypertension 5. Hyperlipidemia 6. Type 2 diabetes mellitus. 7. History of coronary artery bypass surgery. 8. Status post permanent pacemaker insertion, 06/25/2016, single chamber VVI, ejection fraction normal. Stent could not be advanced tortuous right coronary artery disease and also very heavily calcified vessel. PLAN: Patient will take Plavix for 4 weeks and then the patient will take aspirin one a day, and will continue the medication as ordered, and will follow as outpatient. Gigi Gonzalez MD
--- NOTE | 2017-12-12 02:25 | DS ---
HISTORY OF PRESENT ILLNESS: The patient is an 81 years old, seen and examined, was admitted because of intermittent chest pain. He had pacemaker interrogated, was functioning well, underwent cardiac cath yesterday and ended up having angioplasty. PHYSICAL EXAMINATION: GENERAL: On examination today, he is awake, alert, oriented, communicative. VITAL SIGNS: He is afebrile, pulse 73, respirations 20, blood pressure 167/101. LUNGS: Bilateral good airflow. No rhonchi or crackle. HEART: S1 and S2 audible. ABDOMEN: Soft, obese, nontender. No rebound. No guarding. NEUROLOGIC: He is awake, alert, oriented, communicative. LABORATORY DATA: Sodium 141, potassium 4.2, chloride 107, CO2 of 25, BUN 21, creatinine 0.9, blood sugar 124. Urinalysis is unremarkable. ASSESSMENT: 1. Chest pain secondary to underlying coronary ischemia. 2. Hypertension. 3. Hyperlipidemia. 4. Chronic degenerative disk disease. 5. Status post open heart surgery. The patient was found to have triple vessel disease, patent left internal mammary artery, multiple stenoses in the saphenous vein graft sequential to obtuse marginal and obtuse marginal 3, left posterior descending artery occluded, left radial to obtuse marginal 1. PLAN: The patient will be discharge home. He is in stable condition. He will continue his usual medications. He is advised to take aspirin 81 daily and Plavix 75 daily for 4 to 6 weeks. He will continue all other medications. He will follow up in office in a week to 2. Talia Tom MD
--- NOTE | 2017-12-12 10:23 | CARD ---
APPROVED REPORT EKG Measurement Heart [id number] <Conclusion> Electronic ventricular pacemaker: 100 V. Paced
--- NOTE | 2017-12-14 17:10 | CARD ---
APPROVED REPORT EXAM: Two-dimensional and M-mode echocardiogram with Doppler and color Doppler. INDICATION Chest Pain 2D DIMENSIONS Left Atrium (2D)4.2 (1.6-4.0cm)IVSd1.0 (0.7-1.1cm) LVDd5.1 (3.9-5.9cm)LVOT Diameter2.1 (1.8-2.4cm) PWd1.2 (0.7-1.1cm)LVDs3.7 (2.5-4.0cm) FS (%) 26.8 %LVEF (%)52.0 (>50%) M-Mode DIMENSIONS Aortic Root4.00 (2.2-3.7cm)Aortic Cusp Exc.1.40 (1.5-2.0cm) Aortic Valve AoV Peak Noewpayx398.0cm/sAoV VTI52.4cmAO Peak GR.24mmHg LVOT Peak Xzxijygg863.0cm/sLVOT VTI22.90cmAO Mean GR.12mmHg MAGDI (VMAX)1.90rp2DCK (VTI)1.51cm2 Mitral Valve MV E Bfpubepd045.0cm/sMV A Ukumyjat803.0cm/sMV ZOQ526pn E/A ratio1.0MVA (PHT)1.26cm2 TDI Lateral E' Peak V4.48cm/sMedial E' Peak V5.85cm/sE/Lateral E'31.5 E/Medial E'24.1 Pulmonary Valve PV Peak Vhjmilpg62.3cm/sPV Peak Grad.1mmHg Tricuspid Valve TR Peak Uusfyust892oq/sRAP JSUUQBBS35ynCvKF Peak Gr.31mmHg RFJT71jnAe LEFT VENTRICLE The left ventricle is normal size. There is normal left ventricular wall thickness. The left ventricular function is normal.EF-55% There is normal LV segmental wall motion. Transmitral Doppler flow pattern is Grade III-reversible restrictive diastolic dysfunction. No left ventricle thrombus noted on this study. There is no ventricular septal defect visualized. There is no left ventricular aneurysm. There is no mass noted in the left ventricle. RIGHT VENTRICLE The right ventricle is normal size. There is normal right ventricular wall thickness. The right ventricular systolic function is normal. ATRIA The left atrium is mildly dilated. The right atrium size is normal. The interatrial septum is intact with no evidence for an atrial septal defect. AORTIC VALVE The aortic valve is calcified and displays decreased opening. There is trace aortic regurgitation. There is mild valvular aortic stenosis. There is no aortic valvular vegetation. MITRAL VALVE The mitral valve is calcified and displays decreased opening. Mitral annular calcification is moderate to severe. Mitral regurgitation is mild to moderate There is mild to moderate mitral valve stenosis.MVA 1.2-1.3 cm2 There is no evidence of mitral valve prolapse. TRICUSPID VALVE The tricuspid valve leaflets are thickened or calcified, but open well. There is mild to moderate tricuspid regurgitation.RVSP-41 mm of Hg. There is no tricuspid valve stenosis. There is no tricuspid valve prolapse or vegetation. PULMONIC VALVE The pulmonic valve is mildly thickened. There is trace pulmonic valvular regurgitation. There is no pulmonic valvular stenosis. GREAT VESSELS The aortic root is normal in size. The ascending aorta is normal in size. The pulmonary artery is normal. The IVC is normal in size and collapses >50% with inspiration. PERICARDIAL EFFUSION There is no pleural effusion. There is no pericardial effusion. <Conclusion> There is normal left ventricular wall thickness. The left ventricular function is normal.EF-55% There is trace aortic regurgitation. There is mild valvular aortic stenosis. Mitral regurgitation is mild to moderate There is mild to moderate mitral valve stenosis.MVA 1.2-1.3 cm2 There is mild to moderate tricuspid regurgitation.RVSP-41 mm of Hg. There is trace pulmonic valvular regurgitation. The IVC is normal in size and collapses >50% with inspiration. There is no pericardial effusion.
== END 2017-12-11 16:52 | disposition home or self-care (01) | DRG 251 ==
LOC: ED 20:52 → ERH 12-09 00:01 → 2RNO 12-09 01:02 → OBSVTOIN 12-10 16:05
PROVIDERS: ADMIT Internal Medicine; ATTEND Internal Medicine
PROC: 02703ZZ Dilation of Coronary Artery, One Artery, Percutaneous Approach (ICD-10-PCS; principal; 2017-12-10)
PROC: 4A023N7 Measurement of Cardiac Sampling and Pressure, Left Heart, Percutaneous Approach (ICD-10-PCS; 2017-12-10)
PROC: B211YZZ Fluoroscopy of Multiple Coronary Arteries using Other Contrast (ICD-10-PCS; 2017-12-10)
PROC: B215YZZ Fluoroscopy of Left Heart using Other Contrast (ICD-10-PCS; 2017-12-10)
PROC: B218YZZ Fluoroscopy of Left Internal Mammary Bypass Graft using Other Contrast (ICD-10-PCS; 2017-12-10)
DX: I21.4 Non-ST elevation (NSTEMI) myocardial infarction (principal); I25.10 Atherosclerotic heart disease of native coronary artery without angina pectoris; J44.9 Chronic obstructive pulmonary disease, unspecified; E11.9 Type 2 diabetes mellitus without complications; I34.0 Nonrheumatic mitral (valve) insufficiency; I10 Essential (primary) hypertension; M54.17 Radiculopathy, lumbosacral region; E78.5 Hyperlipidemia, unspecified; E66.9 Obesity, unspecified; K21.9 Gastro-esophageal reflux disease without esophagitis; Z79.4 Long term (current) use of insulin; Z98.61 Coronary angioplasty status; Z95.0 Presence of cardiac pacemaker; Z95.1 Presence of aortocoronary bypass graft; Z87.891 Personal history of nicotine dependence

== ENCOUNTER 2018-10-20 11:12 | Outpatient (CLI) | payer MEDICARE | END 2018-10-20 11:13 | disposition home or self-care (01) | LOC: CARDIO 11:12 ==

== ENCOUNTER 2019-01-19 14:45 | Inpatient (IN) | payer MEDICARE ==
[2019-01-19 15:37] LABS: BASO # 0.01 K/mm3 (0.0-2.0); BASO % 0.1 % (0.0-3.0); EOS # 0.1 (0.0-0.7); EOS % 0.9 % (1.5-5.0); LYMPH # 1.3 (1.2-3.4); LYMPH % 13.3 % (22.0-35.0); MEAN CELL VOLUME 88.4 fl (80.0-105.0); MEAN CORPUSCULAR HEMOGLOBIN 28.9 pg (25.0-35.0); MEAN CORPUSCULAR HGB CONC 32.7 g/dl (31.0-37.0); MEAN PLATELET VOLUME 9.9 fl (7.0-11.0); MONO # 0.7 (0.1-0.6); MONO % 6.9 % (1.0-6.0); RBC 5.19 10^6/uL (3.5-6.1); RED CELL DISTRIBUTION WIDTH 14.5 % (11.5-14.5); WHITE BLOOD COUNT 9.9 10^3/uL (4.5-11.0)
--- NOTE | 2019-01-19 15:51 | RAD ---
HISTORY: chf COMPARISON: Chest x-ray performed 12/08/17 TECHNIQUE: Chest, one view. FINDINGS: LUNGS: Patchy right lower lobe infiltrate. Please note that chest x-ray has limited sensitivity for the detection of pulmonary masses. PLEURA: No significant pleural effusion identified. No definite pneumothorax . CARDIOVASCULAR: Median sternotomy wires with evidence of CABG. Heart size appears borderline enlarged. Dense atherosclerotic calcifications of the aorta. Single lead left-sided pacemaker. OSSEOUS STRUCTURES: Degenerative changes. VISUALIZED UPPER ABDOMEN: Unremarkable. OTHER FINDINGS: None. IMPRESSION: Patchy right lower lobe infiltrate. Median sternotomy wires with evidence of CABG. Heart size appears borderline enlarged. Dense atherosclerotic calcifications of the aorta. Single lead left-sided pacemaker.
[2019-01-19 15:53] LABS: ALB/GLOB RATIO 1.4 (1.1-1.8); ALT/SGPT 39 U/L (7-56); AST/SGOT 42 U/L (17-59); BLOOD UREA NITROGEN 18 mg/dL (7-21); CALCIUM 9.1 mg/dL (8.4-10.5); GFR NON-AFRICAN AMERICAN > 60
--- NOTE | 2019-01-19 15:57 | ED PDOC ---
Arrival/HPI - General Chief Complaint: Lower Extremity Problem/Injury Time Seen by Provider: 01/19/19 14:48 Historian: Patient - History of Present Illness Narrative History of Present Illness (Text): 01/19/19 14:48 Pt is an 83 year old male, with a past medical history of hypertension, hyperlipidemia, COPD, pacemaker 2 year ago, and CABG w/ multiple bypass, who complains of bilateral leg edema since 6 days ago. Patient informs edema started suddenly. Patient's legs skinny at baseline. Patient informs taking 40 mg lasix with improvement of symptoms. Patient was admitted to [place] on 01/03/2019 for pneumonia and was prescribed antibiotics; patient continued use for 3 days. Patient followed up with PMD and was given antibiotics course for 5 days; also prescribed steroids for COPD. Patient denies fevers, chills, night sweats, vision changes, headache, dizziness, shortness of breath, cough, chest pain, abdominal pain, diarrhea, nausea, vomiting, bloody stool, dysuria, hematuria, back pain, neck pain, rash, diaphoresis, or any other complaint. Time/Duration: < week Symptom Onset: Sudden Activities at Onset: Light Context: Home Past Medical History - Provider Review Nursing Documentation Reviewed: Yes - Tetanus Immunization Tetanus Immunization: Unknown - Cardiac Hx Cardiac Disorders: Yes Hx Pacemaker: Yes Hx Peripheral Edema: Yes (+3) - Pulmonary Hx Respiratory Disorders: Yes Hx Asthma: Yes Hx Chronic Obstructive Pulmonary Disease (COPD): Yes Other/Comment: Smoked for 40 ears. Quit 20 ears ago. - Neurological Hx Neurological Disorder: Yes Hx Dizziness: Yes Hx Paralysis: No Hx Syncope: Yes - HEENT Hx HEENT Disorder: Yes (USES GLASSES) - Renal Hx Renal Disorder: Yes - Endocrine/Metabolic Hx Endocrine Disorders: Yes Hx Diabetes Mellitus Type 2: Yes - Hematological/Oncological Hx Blood Transfusion Reaction: No (NA) - Integumentary Hx Dermatological Disorder: No - Musculoskeletal/Rheumatological Hx Falls: No - Gastrointestinal Hx Gastrointestinal Disorders: Yes Hx Gastroesophageal Reflux: Yes - Genitourinary/Gynecological Hx Bladder Cancer: Yes - Psychiatric Hx Depression: Yes Hx Substance Use: No - Surgical History Hx Open Heart Surgery: Yes (CABG) Other/Comment: cataract - Anesthesia Hx Anesthesia Reactions: No Hx Malignant Hyperthermia: No - Suicidal Assessment Feels Threatened In Home Enviroment: No Family/Social History - Physician Review Nursing Documentation Reviewed: Yes Family/Social History: Unknown Family HX Smoking Status: Former Smoker Hx Alcohol Use: No Hx Substance Use: No Hx Substance Use Treatment: No Allergies/Home Meds Allergies/Adverse Reactions: Allergies iodine Allergy (Severe, Verified 01/19/19 14:52) RASH pneumococcal vaccine Allergy (Severe, Verified 01/19/19 14:52) SWELLING Tetanus Vaccines and Toxoid [Tetanus Vaccines & Toxoid] Allergy (Severe, Verified 01/19/19 14:52) SWELLING Home Medications: Home Meds Medication Instructions Recorded Confirmed Aspirin [Aspirin EC] 81 mg PO DAILY 01/09/15 01/19/19 Budesonide/Formoterol Fumarate 1 puff IH BID 01/09/15 01/19/19 [Symbicort 80-4.5 Mcg Inhaler] Omeprazole [Prilosec] 20 mg PO DAILY 01/09/15 01/19/19 Tiotropium [Spiriva] 18 mcg IH DAILY 01/09/15 01/19/19 Gabapentin [Neurontin] 300 mg PO BID 02/13/16 01/19/19 Simvastatin [Zocor] 20 mg PO DAILY 03/03/16 01/19/19 metFORMIN [glucOPHAGE] 500 mg PO BID 03/03/16 01/19/19 ARIPiprazole [Abilify] 10 mg PO DAILY 06/24/16 01/19/19 Lisinopril [Zestril] 10 mg PO HS 08/31/17 01/19/19 Metoprolol Tartrate [Lopressor] 12.5 mg PO DAILY 08/31/17 01/19/19 Review of Systems - Physician Review All systems were reviewed & negative as marked: Yes - Review of Systems Constitutional: absent: Fevers, Night Sweats, Other (chills) Eyes: absent: Vision Changes Respiratory: absent: SOB, Cough Cardiovascular: Edema (bilateral lower extremity edema). absent: Chest Pain Gastrointestinal: absent: Abdominal Pain, Diarrhea, Nausea, Vomiting, Hematochezia Genitourinary Male: absent: Dysuria, Hematuria Musculoskeletal: absent: Back Pain, Neck Pain Skin: absent: Rash Neurological: absent: Headache Endocrine: absent: Diaphoresis Physical Exam - Physical Exam Narrative Physical Exam (Text): 01/19/19 14:48 Gen: VS reviewed, alert, well developed, well nourished, nontoxic, mild distress. ENT: normal pharynx. Eye: EOMI, PERRL. Neck: no JVD, supple, no adenopathy. CV: Irregularly irregular. Tachycardic. no rubs, no murmur, no gallops, S1, S2, pulses equal and strong. Pulm: no distress, clear to auscultation, no wheeze, no rhonchi, breath sounds equal, no rales. Abd: soft, nontender, no guarding, no rebound, no rigidity, normal bowel sounds. Ext: bilateral pitting edema up to mid calves. Calves nontender bilaterally. Skin: good color, no rash, no cyanosis. Psych: responds appropriately to questions, normal affect. Neuro: oriented x 3, CN2-12 intact grossly, motor intact, sensation intact. Vital Signs Reviewed: Yes Vital Signs Temp Pulse Resp BP Pulse Ox 01/19/19 14:57 98.3 F 120 H 17 124/84 98 Temperature: Afebrile Blood Pressure: Normal Pulse: Tachycardic Respiratory Rate: Normal Appearance: Positive for: Well-Appearing, Non-Toxic, Comfortable Pain Distress: None Mental Status: Positive for: Alert and Oriented X 3 Medical Decision Making ED Course and Treatment: 01/19/19 18:[address] bearden, will see pt in consultation 01/19/19 19:[address] reese - RAD Interpretation Narrative RAD Interpretations (Text): 01/19/19 15:48 Chest X-Ray shows: IMPRESSION: Patchy right lower lobe infiltrate. Median sternotomy wires with evidence of CABG. Heart size appears borderline enlarged. Dense atherosclerotic calcifications of the aorta. Single lead left- sided pacemaker. 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 RBBB. Interpreted by ED Physician: Yes Type: 12 lead EKG - Scribe Statement The provider has reviewed the documentation as recorded by the Scribe Heber Goldman All medical record entries made by the Scribe were at my direction and personally dictated by me. I have reviewed the chart and agree that the record accurately reflects my personal performance of the history, physical exam, medical decision making, and the department course for this patient. I have also personally directed, reviewed, and agree with the discharge instructions and disposition. Disposition/Present on Arrival - Present on Arrival Any Indicators Present on Arrival: No History of DVT/PE: No History of Uncontrolled Diabetes: No Urinary Catheter: No History of Decub. Ulcer: No History Surgical Site Infection Following: None - Disposition Have Diagnosis and Disposition been Completed?: Yes Diagnosis: Atrial fibrillation, Pneumonia Disposition: HOSPITALIZED Disposition Time: 13:20 Patient Plan: Admission Condition: GUARDED
[2019-01-19] MEDS ORDERED: Azithromycin 500MG/NS 250ml 500 MG/250 ML BAG IVPB STA (16:17)
[2019-01-19] MEDS ORDERED: cefTRIAXone 1 gm 1 GM/100 ML BAG IVPB STA (16:17)
[2019-01-19 16:24] LABS: B-TYPE NATRIURETIC PEPTIDE 2660 pg/mL (0-450); TROPONIN I < 0.01 ng/mL
[2019-01-19] MEDS ORDERED: Magnesium Sulfate 2 gm/50 ml 2 GM/50 ML BAG IVPB ONE (16:47)
--- NOTE | 2019-01-19 17:59 | US ---
HISTORY: Leg pain and swelling. Evaluate for DVT PHYSICIAN(S): Saturnino Shaw MD. TECHNIQUE: Duplex sonography and color-flow Doppler with graded compression were used to evaluate the deep venous systems of both lower extremities. FINDINGS: The visualized deep venous systems of both lower extremities are sonographically normal and compressible. Normal wave forms and augmentation are seen. There is no sonographic evidence for deep venous thrombosis in the visualized segments of both lower extremities. IMPRESSION: No sonographic evidence for deep venous thrombosis in the visualized segments of both lower extremities.
[2019-01-19] MEDS ORDERED: Iodixanol 320 MG/ML 100 ML BOTTLE IV ONE (18:19)
[2019-01-19] MEDS ORDERED: diltiaZEM IVPB 100mg in NS 100 ML IV PRN (18:20)
[2019-01-19 18:25] LABS: VENOUS BLOOD GAS BASE EXCESS 2.4 mmol/L (0.0-2.0); VENOUS BLOOD GAS PO2 175 mm/Hg (30-55); VENOUS BLOOD PH 7.45 (7.32-7.43)
[2019-01-19] MEDS: Levalbuterol 1.25 MG/3 ML Inhal Soln UD IH SCH (20:00)
--- NOTE | 2019-01-19 20:18 | CARD ---
APPROVED REPORT Date of service: 01/19/2019 EKG Measurement Heart [id number] <Conclusion> Atrial fibrillation with rapid ventricular response Right bundle branch block Abnormal ECG
--- NOTE | 2019-01-19 20:29 | ED PDOC ---
Physical Exam Vital Signs Temp Pulse Resp BP Pulse Ox 01/19/19 20:13 121 H 18 100/63 100 01/19/19 17:03 114 H 18 132/84 93 L 01/19/19 14:57 98.3 F 120 H 17 124/84 98 Medical Decision Making ED Course and Treatment: 01/19/19 19:00 Case endorsed to me by Dr. Espinoza, pending CT, re-evaluation, and disposition. 01/19/19 20:18 CTA Chest: PULMONARY ARTERIES No evidence of central or segmental pulmonary embolism is seen. AORTA There is no evidence for aneurysm or dissection of the thoracic aorta. LUNGS There is dense consolidation of the right lower lung and mild infiltrate left lower lung. Small right pleural effusion is noted as well as a minimal pleural thickening at the left lung base. PLEURAL SPACES No pleural effusion seen. No pneumothorax evident. HEART Normal heart size. No significant pericardial effusion. Coronary artery calcification present. Sternotomy wires present. Cardiac pacer pacing wire present. LYMPH NODES No lymphadenopathy is evident. BONES No focal osseous abnormality or acute fracture. UPPER ABDOMEN Images of the upper abdomen are unremarkable. IMPRESSION: No evidence of pulmonary embolic disease. Dense consolidation right lower lung infiltrate left lung base. Small right pleural effusion and minimal pleural thickening particularly at the left lung base. Heart large. A cardiac pacer pacing wires present. Advanced atherosclerotic changes present. Sternotomy wires present. Electronically signed on Jan 19, 2019 7:36:07 PM EDT by: Paulo Barksdale M.D., Certified by [facility], Diagnostic Radiology 01/19/19 20:[address] Tom, who is aware and agrees with plan. Accepts pt in to her service. - Lab Interpretations Lab Results: pO2 175 mm/Hg (30-55) H 01/19/19 17:44 VBG pH 7.45 (7.32-7.43) H 01/19/19 17:44 VBG pCO2 38.0 (40-60) L 01/19/19 17:44 VBG HCO3 26.4 mmol/l (21-28) 01/19/19 17:44 VBG Total CO2 27.6 mmol.L (22-28) 01/19/19 17:44 VBG O2 Sat (Calc) 99.0 % (40-65) H 01/19/19 17:44 VBG Base Excess 2.4 mmol/L (0.0-2.0) H 01/19/19 17:44 VBG Potassium 4.0 mmol/L (3.6-5.2) 01/19/19 17:44 Sodium 139.0 mmol/L (132-148) 01/19/19 17:44 Chloride 103.0 mmol/L (98-107) 01/19/19 17:44 Glucose 118 mg/dl (75-110) H 01/19/19 17:44 Lactate 1.3 mmol/L (0.7-2.1) 01/19/19 17:44 FiO2 21.0 % 01/19/19 17:44 Troponin I < 0.01 ng/mL D 01/19/19 15:26 NT-Pro-B Natriuret Pep 2660 pg/mL (0-450) H 01/19/19 15:26 Total Bilirubin 0.8 mg/dL (0.2-1.3) 01/19/19 15:26 AST 42 U/L (17-59) 01/19/19 15:26 ALT 39 U/L (7-56) 01/19/19 15:26 Alkaline Phosphatase 73 U/L (38-126) 01/19/19 15:26 Total Protein 6.9 g/dL (5.8-8.3) 01/19/19 15:26 Albumin 4.0 g/dL (3.0-4.8) 01/19/19 15:26 Globulin 2.9 gm/dL 01/19/19 15:26 Albumin/Globulin Ratio 1.4 (1.1-1.8) 01/19/19 15:26 - RAD Interpretation Radiology Orders: 01/19/19 15:00 CXR [CHEST ONE VIEW] [RAD] Stat 01/19/19 15:01 DUPLEX LOWER EXTRM VEIN BILAT [US] Stat 01/19/19 18:03 ANGIO CHEST PE PROTOCOL [CT] Stat - Medication Orders Current Medication Orders: Aspirin (Ecotrin) 81 mg PO DAILY [facility] Atorvastatin Calcium (Lipitor) 10 mg PO DIN [facility] Enoxaparin Sodium (Lovenox) 80 mg SC Q12 [facility]; Protocol Furosemide (Lasix) 40 mg IVP BID [facility] Gabapentin (Neurontin) 300 mg PO BID [facility]; Protocol diltiaZEM IVPB 100mg in NS (Cardizem 100mg In Ns) 100 mls @ 5 mls/hr IV .Q20H PRN; Protocol PRN Reason: TITRATE PER MD ORDER Last Admin: 01/19/19 20:14 Dose: 5 mls/hr eMAR Start Stop Document 01/19/19 20:14 AD (Rec: 01/19/19 20:16 AD [place] [id number]) Intravenous Solution Start Date 01/19/19 Start Time 20:16 Doxycycline Hyclate 100 mg/ (Sodium Chloride) 100 mls @ 100 mls/hr IVPB Q12 [facility]; Protocol Ceftriaxone Sodium (Rocephin 1 Gram Ivpb) 1 gm in 100 mls @ 100 mls/hr IVPB DAILY [facility]; Protocol Insulin Human Lispro (Humalog Med) 0 units SC ACHS [facility]; Protocol Levalbuterol HCl (Xopenex) 1.25 mg IH [id number] [facility] Lisinopril (Zestril) 10 mg PO HS [facility] Metformin HCl (Glucophage) 500 mg PO BID JUAN Metoprolol Tartrate (Lopressor) 12.5 mg PO DAILY JU[facility] Discontinued Medications Heparin Sodium (Porcine) (Heparin) 4,000 units IV ONCE ONE; Protocol Stop: 01/19/19 18:22 Last Admin: 01/19/19 19:35 Dose: 4,000 units eMAR Start Stop Document 01/19/19 19:35 AD (Rec: 01/19/19 19:35 AD [id number]) Intravenous Solution Start Date 01/19/19 Start Time 19:35 Azithromycin (Zithromax 500mg In Ns) 500 mg in 250 mls @ 250 mls/hr IVPB STAT STA; Protocol Stop: 01/19/19 17:16 Last Admin: 01/19/19 18:57 Dose: 250 mls/hr eMAR Start Stop Document 01/19/19 18:57 BB (Rec: 01/19/19 18:58 BB [id number]) Intravenous Solution Start Date 01/19/19 Start Time 18:00 Ceftriaxone Sodium (Rocephin 1 Gram Ivpb) 1 gm in 100 mls @ 100 mls/hr IVPB ONCE STA; Protocol Stop: 01/19/19 17:16 Last Admin: 01/19/19 17:21 Dose: 100 mls/hr eMAR Start Stop Document 01/19/19 17:21 BB (Rec: 01/19/19 17:22 BB [id number]) Intravenous Solution Start Date 01/19/19 Start Time 17:22 Magnesium Sulfate (Magnesium Sulfate 2 Gm/50 Ml Water) 2 gm in 50 mls @ 50 mls/hr IVPB ONCE ONE Stop: 01/19/19 17:46 Last Admin: 01/19/19 19:30 Dose: 50 mls/hr eMAR Start Stop Document 01/19/19 19:30 AD (Rec: 01/19/19 20:05 AD [id number]) Intravenous Solution Start Date 01/19/19 Start Time 19:30 Disposition/Present on Arrival - Present on Arrival Any Indicators Present on Arrival: No History of DVT/PE: No History of Uncontrolled Diabetes: No Urinary Catheter: No History of Decub. Ulcer: No History Surgical Site Infection Following: None - Disposition Have Diagnosis and Disposition been Completed?: Yes Diagnosis: Atrial fibrillation, Pneumonia Disposition: HOSPITALIZED Disposition Time: 20:25 Condition: GUARDED
[2019-01-19] MEDS ORDERED: Amiodarone 150 mg/D5W 100 ml 150 MG/100 ML BAG IVPB ONE (20:54)
[2019-01-19] MEDS ORDERED: Digoxin 500 mcg/2ml (0.5 mg/2ml) Inj IVP STA (20:57)
[2019-01-19] MEDS ORDERED: Enoxaparin 80 mg Syringe SC SCH (22:00)
[2019-01-19 22:09] VITALS: PULSE 113
[2019-01-19] MEDS: Insulin Lispro (humaLOG) MEDIUM Coverage SC SCH (22:55)
[2019-01-20 02:13] VITALS: BMI 27.9
[2019-01-20] MEDS: Levalbuterol 1.25 MG/3 ML Inhal Soln UD IH SCH ×4 (02:50→20:26)
[2019-01-20 07:19] LABS: HDL CHOLESTEROL 33 mg/dL (29-60)
[2019-01-20 07:30] LABS: LDL CHOLESTEROL 48 mg/dL (0-129)
[2019-01-20] MEDS: Insulin Lispro (humaLOG) MEDIUM Coverage SC SCH ×4 (07:39→22:00)
--- NOTE | 2019-01-20 08:01 | CON ---
DATE: 01/19/2019 CONSULT SERVICE: Cardiology. REASON FOR CONSULTATION AND FOLLOWUP: Atrial fibrillation/flutter new onset, history of coronary artery disease, and history of CABG. BRIEF CLINICAL HISTORY: An 83-year-old male with past medical history significant for hypertension, hyperlipidemia, COPD, pacemaker in 1999 because the patient presented with complete heart block who developed recently pneumonia, admitted to [facility] and was discharged home. Recently, the patient was complaining of leg swelling, so patient was advised by Dr. Tom to have extra dose of Lasix which the patient took it and then he called again this morning, so advised by to check cardiac status. The patient was found in ER, AFib with rapid rate. The patient is going to the CAT scan to rule out PE. Denies any chest pain. Denies any shortness of breath. Denies any palpitations. Son is at the bedside. PAST MEDICAL HISTORY: Significant for 5-vessel bypass 12-15 years ago by , history of sick sinus syndrome, complete heart block on 06/24/2016, status post permanent pacemaker, history of recent NSTEMI, and history of angioplasty on 12/10/2017. RECENT CARDIAC WORKUP FOLLOWS: The patient had cardiac catheterization and PTCA of mid RCA was done with plain balloon angioplasty. At that time, cardiac catheterization revealed multivessel CAD, patent RODRÍGUEZ to LAD, patent SVG sequential to OM-2, OM-3, and LPDA patent, but multiple stenosis in graft noted, not suitable for PCI, high risk and bad outcome, preserved LV function, ejection fraction of 55%, and EDP was in the range of 15. No gradient across aortic valve noted. The patient had plain balloon angioplasty of mid RCA was done dated on 12/10/2017. The patient also had echocardiography done dated 12/11/2017 that revealed ejection fraction of 55%, [id number] mitral regurgitation, [id number] mitral valve area 1.2 to 1.3 cm2. [id number]-[id number] tricuspid regurgitation, and RV systolic pressure of 51. Trace pulmonary insufficiency, trace aortic regurgitation, and mild aortic stenosis. The patient had pacemaker because of complete heart block when the patient was admitted on 06/24/2016. SOCIAL HISTORY: Denies any smoking. Denies any history of alcohol abuse. He used to smoke, quit 40 years ago, 40-pack year of smoking. Socially drinks. No history of substance abuse. ALLERGIES: TO IODINE, PNEUMOCOCCAL VACCINE, TETANUS VACCINE, AND TOXOID. CURRENT MEDICATIONS: Glucophage 500 mg, Spiriva, simvastatin, omeprazole, metoprolol, lisinopril, gabapentin, and aspirin. REVIEW OF SYSTEMS: As per HPI. PHYSICAL EXAMINATION: VITAL SIGNS: As follows; height of the patient 5 feet 8 inches, weight of the patient 184 pounds, and body mass index 28 kg/m2. Temperature afebrile, heart rate 111, and blood pressure 103/77. HEENT: PERRLA. Extraocular muscles intact. NECK: Supple. No carotid bruits. No thyromegaly. CHEST: Clear to auscultation. HEART: S1 and S2 regular. ABDOMEN: Soft. EXTREMITIES: Clubbing and cyanosis negative. LABORATORY DATA: EKG shows AFib at a rate of 120. Blood work; WBC 9.9, hemoglobin 15, hematocrit 45.9, and platelet count 304. Chemistry shows sodium 140, potassium 4, chloride 104, carbon dioxide 26, anion gap of 14, BUN 18, and creatinine 0.4. BNP elevated. IMPRESSION: An 83-year-old male with past medical history significant for coronary artery bypass surgery 15 years ago, 5-vessel bypass, history of angioplasty in 11/2018, history of pacemaker in 2016, history of recent pneumonia, admitted with leg swelling and atrial fibrillation with rapid rate, possible sepsis and pneumonia. Recently discharged from [facility] because of pneumonia. Chest x-ray still looks like some right lower lobe pneumonia. RECOMMENDATIONS: We will start broad-spectrum antibiotics, start anticoagulation, load with IV amiodarone and verapamil. Continue low dose Cardizem started from ER. Further recommendations depending upon the hospital course. We will get lipid profile, TSH, and hemoglobin A1c. Repeat echo in the morning. We will follow with you. Thank you Dr. Tom for providing us the opportunity in taking care of the patient, Mark Mackay. Gigi Rust MD
--- NOTE | 2019-01-20 08:20 | CT ---
Date of service: 01/19/2019 PROCEDURE: CT Chest with contrast (Pulmonary Angiogram) HISTORY: pulmonary embolism COMPARISON: None available. TECHNIQUE: Axial computed tomography images were obtained of the chest in the pulmonary arterial phase of enhancement. Coronal and sagittal reformatted images were created and reviewed. Intravenous contrast dose: 65 cc Visipaque 320. Mean Hounsfield value in the main pulmonary artery: 424.86 Radiation dose: Total exam DLP = 598.16 mGy-cm. This CT exam was performed using one or more of the following dose reduction techniques: Automated exposure control, adjustment of the mA and/or kV according to patient size, and/or use of iterative reconstruction technique. FINDINGS: PULMONARY ARTERIES: Unremarkable. No pulmonary embolism. AORTA: No acute findings. No thoracic aortic aneurysm. Atherosclerotic calcification and mural plaque present. Findings are seen throughout the aorta which is non aneurysmal as well as the aortic arch. LUNGS: Right lower lobe infiltrate likely pneumonia. Subsegmental dependent atelectatic changes left lower lobe. PLEURAL SPACES: Trace right pleural effusion. HEART: Unremarkable. No cardiomegaly. No significant pericardial effusion. Position/ configuration of pacemaker Sternotomy wires present. LYMPH NODES: No lymphadenopathy. BONES, CHEST WALL: Unremarkable. No fracture or destructive lesion OTHER FINDINGS: Unremarkable. IMPRESSION: Unremarkable CT pulmonary angiogram. No pulmonary embolus. Right lower lobe infiltrate. Subsegmental atelectatic change left base. Additional benign and/or incidental findings described above. Concordant results (preliminary interpretation) provided by Merlin. Procedure Completed: 18:27. Preliminary Report: Interpreted and electronically signed: 19:36. Final Interpretation: 08:16. January 20, 2019.
--- NOTE | 2019-01-20 09:26 | CP.PCM.PN ---
Subjective - Date & Time of Evaluation Date of Evaluation: 01/20/19 Time of Evaluation: 06:38 - Subjective Subjective: Awake, alert, no distress Reason for consultation and follow up:Cardiac evaluation of new onset atrial fibrillation, history of coronary artery disease, post CABG, PPM Seen and examined by me and Dr. Rust Objective - Vital Signs/Intake and Output Vital Signs (last 24 hours): Temp Pulse Resp BP Pulse Ox 97.6 F 97 H 20 114/69 96 01/20/19 06:00 01/20/19 06:00 01/20/19 06:00 01/20/19 06:00 01/20/19 06:00 Intake and Output: 01/20/19 01/20/19 06:59 18:59 Intake Total 120 Output Total 800 Balance -680 - Medications Medications: Current Medications Amiodarone HCl (Cordarone) 200 mg PO DAILY [facility] Amiodarone HCl (Cordarone) 400 mg PO TID [facility] Stop: 01/20/19 23:59 Apixaban (Eliquis) 2.5 mg PO BID [facility]; Protocol Aspirin (Ecotrin) 81 mg PO DAILY [facility] Atorvastatin Calcium (Lipitor) 10 mg PO DIN [facility] Furosemide (Lasix) 40 mg IVP BID [facility] Gabapentin (Neurontin) 300 mg PO BID [facility]; Protocol Last Admin: 01/19/19 20:00 Dose: 300 mg Doxycycline Hyclate 100 mg/ (Sodium Chloride) 100 mls @ 100 mls/hr IVPB Q12 [facility]; Protocol Last Admin: 01/20/19 00:00 Dose: 100 mls/hr Ceftriaxone Sodium (Rocephin 1 Gram Ivpb) 1 gm in 100 mls @ 100 mls/hr IVPB DAILY [facility]; Protocol Insulin Human Lispro (Humalog Med) 0 units SC ACHS [facility]; Protocol Last Admin: 01/20/19 07:39 Dose: Not Given Levalbuterol HCl (Xopenex) 1.25 mg IH [id number] [facility] Last Admin: 01/20/19 08:52 Dose: 1.25 mg Lisinopril (Zestril) 10 mg PO HS [facility] Last Admin: 01/19/19 22:30 Dose: 10 mg Metformin HCl (Glucophage) 500 mg PO BID [facility] Last Admin: 01/19/19 20:00 Dose: 500 mg Metoprolol Tartrate (Lopressor) 12.5 mg PO DAILY [facility] - Labs Labs: 01/19/19 15:26 01/19/19 15:26 - Constitutional Appears: Non-toxic, No Acute Distress - Head Exam Head Exam: NORMAL INSPECTION, NORMOCEPHALIC - Eye Exam Eye Exam: Normal appearance Pupil Exam: NORMAL ACCOMODATION - ENT Exam ENT Exam: Mucous Membranes Moist, Normal Exam - Respiratory Exam Respiratory Exam: Clear to Ausculation Bilateral, NORMAL BREATHING PATTERN - Cardiovascular Exam Cardiovascular Exam: Irregular Rhythm, +S1, +S2 Additional comments: atrial fibrillation 80-90's PPM - GI/Abdominal Exam GI & Abdominal Exam: Soft, Normal Bowel Sounds - Extremities Exam Extremities Exam: Full ROM Additional comments: 2+edema - Neurological Exam Neurological Exam: Alert, Awake, Oriented x3 - Psychiatric Exam Psychiatric exam: Normal Affect, Normal Mood - Skin Skin Exam: Dry, Normal Color, Warm Assessment and Plan - Assessment and Plan (Free Text) Assessment: An 83 year old male who came in to the ER due to bilateral leg edema. He was recently admitted at [facility] for pneumonia. History of hypertension, hyperlipidemia, COPD, PPM for sick sinus syndrome and complete heart block on 12/10/2017. coronary artery disease with CABG 12-15 years ago,Non STEMI. Cardiac cath done on 12/10/17 showed triple vessel disease,patent RODRÍGUEZ to LAD, patent SVG sequential to OM2,OM3, and left PDA but multiple stenosis in grafts not suitable for PCI due to high risk and bad outcome even with filter wire. LVEF 55%, no aortic valve gradient. Echo done on 12/11/17 showed LVEF 55%, trace Ar, mild valvular aortic stenosis, mild to moderate MR, mild to moderate valvular mitral stenosis, mild to moderate TR, RVSP 41mmHg, trace pulmonary valve regurgitation. New onset atrial fibrillation. rate controlled,IV Digoxin given, started on Cardizem drip. Started on oral Amiodarone. Started on eliquis for anticoagulation. No distress. For echo to evaluate LV function. Plan: Echo to evaluate LV function No distress Telemetry atrial fibrillation, rate controlled Will discontinue Cardizem drip Started on oral Amiodarone with loading dose then 200 mg daily Discontinue Lovenox and start Eliquis for anticoagulation Continue Lasix for Leg edema On Amiodarome 400 mg TID for today then daily at 200 mg, Eliquis 2.5 mg BID, ASa 81 mg daily, Lipitor 10 mg daily, Lasix 40 mg BID, Lisinopril 10 mg HS, Lopressor 12.5 mg daily Continue current treatment Continue current medications Will follow up Plan and treatment discussed with Dr. Rust
[2019-01-20] MEDS ORDERED: Magnesium Sulfate 2 gm/50 ml 2 GM/50 ML BAG IVPB STA (09:53)
[2019-01-20] MEDS ORDERED: cefTRIAXone 1 gm 1 GM/100 ML BAG IVPB SCH (10:00)
[2019-01-20] MEDS ORDERED: Non Formulary Medication (Simvastatin [Zocor] 20 MG) PO SCH (10:00)
--- NOTE | 2019-01-20 13:20 | CP.PCM.PCO ---
Physician Communication Note - Physician Communication Note Physician Communication Note: AFIB cardiology following, IV antibiotic as per ID abnormal CT chest
--- NOTE | 2019-01-20 16:23 | PN ---
DATE: 01/20/2019 SUBJECTIVE: The patient is an 83-year-old, seen and examined, who was admitted last night because of increasing shortness of breath and bilateral leg swelling. States he definitely feels better than yesterday. PHYSICAL EXAMINATION VITAL SIGNS: He is afebrile. Pulse 91, respirations 20 and blood pressure 115/68. LUNGS: Bilateral soft crackle at the bases. HEART: S1 and S2 audible. ABDOMEN: Soft and nontender. No rebound. No guarding. NEUROLOGICALLY: The patient is awake and alert, able to communicate. EXTREMITIES: Bilateral leg +1 edema. LABORATORY DATA: Blood sugar is 167 and magnesium 1.5. ASSESSMENT: 1. Right lower lobe pneumonia. CT scan shows right lower pneumonia; however, the patient has history of having pneumonia and he was treated at [facility] for 3 days. He completed course of antibiotics. He is afebrile, not coughing, so that might be old pneumonia in the process of resolution. 2. New onset of atrial fibrillation. 3. Congestive heart failure. 4. Hypertension. 5. Hyperlipidemia. 6. Noninsulin-dependent diabetes. PLAN: The patient has been started on amiodarone, he is on Eliquis. We will continue him on IV antibiotics. Continue to diurese. We will followup with CBC, CMP, and magnesium in a.m. If the patient continues to improve, possible discharge plan in a.m. Followup electrolytes. I will discuss with Dr. Rust for further management plan. Talia Tom MD
--- NOTE | 2019-01-20 20:04 | CARD ---
APPROVED REPORT Date of service: 01/20/2019 EXAM: Two-dimensional and M-mode echocardiogram with Doppler and color Doppler. INDICATION Atrial Fibrillation LV Function:SystolicDiastolic 2D DIMENSIONS Left Atrium (2D)3.9 (1.6-4.0cm)IVSd1.2 (0.7-1.1cm) LVDd4.6 (3.9-5.9cm)LVOT Diameter2.0 (1.8-2.4cm) PWd1.3 (0.7-1.1cm)LVDs3.4 (2.5-4.0cm) FS (%) 26.4 %LVEF (%)51.7 (>50%) M-Mode DIMENSIONS Aortic Root3.70 (2.2-3.7cm)Aortic Cusp Exc.1.00 (1.5-2.0cm) Aortic Valve AoV Peak Piplwzqj013.0cm/sAoV VTI55.5cmAO Peak GR.34mmHg LVOT Peak Rhkfosgx501.0cm/sLVOT VTI20.40cmAO Mean GR.19mmHg MAGDI (VMAX)1.05dm9HFL (VTI)1.15cm2 Mitral Valve MV E Peak Gr.21mmHgMV E Mean Gr.9mmHgMV [id number] E/A ratio0.0MVA (PHT)1.53cm2 TDI E/Lateral E'0.0E/Medial E'0.0 Pulmonary Valve PV Peak Bafkxabn06.5cm/sPV Peak Grad.2mmHg Tricuspid Valve TR Peak [id number] [id number] Peak Gr.50mmHg [id number] LEFT VENTRICLE The left ventricle is normal size. There is mild to moderate concentric left ventricular hypertrophy. The left ventricular function is normal.Ef-55% There is a flattened septum consistent with right ventricle volume and pressure overload. A fib No left ventricle thrombus noted on this study. There is no ventricular septal defect visualized. There is no left ventricular aneurysm. There is no mass noted in the left ventricle. RIGHT VENTRICLE The right ventricle is mildly to moderately dilated. The right ventricle is mildly hypertrophied. Systolic function is mildly to moderately reduced. ATRIA The left atrium size is normal. The right atrium is mildly dilated. The interatrial septum is intact with no evidence for an atrial septal defect. AORTIC VALVE The aortic valve is calcified and displays decreased opening. Left coronary Cusp is immobile There is trace aortic regurgitation. There is mild to moderate valvular aortic stenosis. There is no aortic valvular vegetation. MITRAL VALVE The mitral valve is calcified and displays decreased opening. Mitral annular calcification is severe. Mitral regurgitation is moderate. There is moderate mitral valve stenosis.MVA-1.5 cm2 There is no evidence of mitral valve prolapse. TRICUSPID VALVE The tricuspid valve leaflets are thickened , but open well. There is moderate to severe tricuspid regurgitation.RVSP-60 mmof Hg. There is no tricuspid valve stenosis. There is no tricuspid valve prolapse or vegetation. PULMONIC VALVE The pulmonic valve is mildly thickened. There is mild to moderate pulmonic valvular regurgitation. There is no pulmonic valvular stenosis. GREAT VESSELS The aortic root is normal in size. The ascending aorta is normal in size. The pulmonary artery is normal. The IVC is normal in size and collapses >50% with inspiration. PERICARDIAL EFFUSION There is no pleural effusion. There is no pericardial effusion. <Conclusion> The left ventricle is normal size. There is mild to moderate concentric left ventricular hypertrophy. The left ventricular function is normal.Ef-55% The aortic valve is calcified and displays decreased opening. Left coronary Cusp is immobile There is mild to moderate valvular aortic stenosis. Mitral regurgitation is moderate.MVA-1.5 cm2 There is moderate to severe tricuspid regurgitation.RVSP-60 mmof Hg. There is mild to moderate pulmonic valvular regurgitation. There is no pericardial effusion. The IVC is normal in size and collapses >50% with inspiration.
[2019-01-20] MEDS: Cefepime 1gm in NS 100ml 1 GM/100 ML BAG IVPB SCH (22:14)
--- NOTE | 2019-01-21 00:19 | CON ---
DATE: 01/20/2019 LOCATION: Patient was seen earlier today in room 275. CHIEF COMPLAINT: Shortness of breath, lower extremity edema. HISTORY OF PRESENT ILLNESS: This is an 83-year-old male with a history of hypertension, hyperlipidemia, COPD, pacemaker, coronary artery disease, history of coronary bypass graft, with a history of congestive heart failure and he has a history of depression, who was admitted with shortness of breath. Patient had a chest x-ray. PAST MEDICAL HISTORY: Significant for coronary artery disease, hypertension, diabetes mellitus, hyperlipidemia, chronic obstructive lung disease, kidney disease, cataract, arthritis. PAST SURGICAL HISTORY: Significant for tonsillectomy, coronary artery bypass graft, pacemaker placement and cataract surgery. ALLERGIES: TO IODINE, PNEUMOCOCCAL VACCINE, TETANUS VACCINE, AND TOXOID VACCINE. MEDICATIONS AT HOME: Reveals the patient is on aspirin and metformin. Patient had been on Zithromax as outpatient. REVIEW OF SYSTEMS: Reveals patient has no fevers, no chills. No nausea, vomiting, abdominal pain, diarrhea, or constipation. A 12-point review of systems is performed. PHYSICAL EXAMINATION: VITAL SIGNS: Temperature is 98, blood pressure is 115/60, respiratory rate of 20, heart rate of 99. HEENT: Unremarkable. NECK: Supple. LUNGS: Decreased breath sounds. HEART: Normal S1 and S2. ABDOMEN: Soft and nontender. EXTREMITIES: Examination of lower extremities reveals edema bilaterally. LABORATORY DATA: Reveals white count of 9.9 and hemoglobin of 15. Creatinine is 0.8. BNP is 2660. Procalcitonin is 0.05. Patient had a chest x-ray, which shows a patchy lower lobe pneumonia. Patient had procalcitonin which was less than 0.05. ASSESSMENT AND PLAN: An 83-year-old male with hypertension, hyperlipidemia, depression, chronic obstructive lung disease, coronary artery disease, congestive heart failure, kidney disease, arthritis was admitted with congestive heart failure. Patient had a CT angiography which showed right lower lobe infiltrate as does the chest x-ray. No evidence of pulmonary embolism. Patient was in [facility] a few weeks ago for three days with most likely acute congestive heart failure on top of chronic congestive heart failure with a right lower lobe associated pneumonia. We will treat the patient with Maxipime and doxycycline and repeat the procalcitonin. We have ordered pancultures and blood cultures. We will order a sputum culture and methicillin-resistant Staphylococcus aureus screen and repeat a procalcitonin. We will use p.o. doxycycline since the patient is able to tolerate p.o. Discontinue ceftriaxone since the patient was in a recent hospitalization and was treated with antibiotics. We will follow closely with you. Case discussed with private medical doctor. We will be able to switch to p.o. antibiotics in the next 24 hours. Elieser Villarreal MD
[2019-01-21] MEDS: Levalbuterol 1.25 MG/3 ML Inhal Soln UD IH SCH ×3 (02:07→13:00)
[2019-01-21] MEDS: Cefepime 1gm in NS 100ml 1 GM/100 ML BAG IVPB SCH (05:29)
[2019-01-21 07:13] LABS: BASO # 0.02 K/mm3 (0.0-2.0); BASO % 0.3 % (0.0-3.0); EOS # 0.1 (0.0-0.7); LYMPH # 0.9 (1.2-3.4); LYMPH % 13.8 % (22.0-35.0); MEAN CELL VOLUME 88.1 fl (80.0-105.0); MEAN CORPUSCULAR HEMOGLOBIN 28.4 pg (25.0-35.0); MEAN CORPUSCULAR HGB CONC 32.2 g/dl (31.0-37.0); MEAN PLATELET VOLUME 9.7 fl (7.0-11.0); MONO # 0.4 (0.1-0.6); MONO % 7.1 % (1.0-6.0); RBC 4.55 10^6/uL (3.5-6.1); RED CELL DISTRIBUTION WIDTH 14.5 % (11.5-14.5); WHITE BLOOD COUNT 6.2 10^3/uL (4.5-11.0)
[2019-01-21 07:18] LABS: HEMOGLOBIN 12.9 g/dL (14.0-18.0)
[2019-01-21 07:29] LABS: FREE T4 1.3 ng/dL (0.78-2.19)
[2019-01-21 07:30] LABS: ALB/GLOB RATIO 1.2 (1.1-1.8); ALBUMIN 3.3 g/dL (3.0-4.8); ALT/SGPT 32 U/L (7-56); AST/SGOT 22 U/L (17-59); BLOOD UREA NITROGEN 15 mg/dL (7-21); CALCIUM 8.4 mg/dL (8.4-10.5); GFR NON-AFRICAN AMERICAN > 60
[2019-01-21] MEDS: Insulin Lispro (humaLOG) MEDIUM Coverage SC SCH ×2 (08:35→13:04)
--- NOTE | 2019-01-21 08:38 | CP.PCM.PN ---
Subjective - Date & Time of Evaluation Date of Evaluation: 01/21/19 Time of Evaluation: 06:50 - Subjective Subjective: Awake, alert, no distress, feels better Reason for consultation and follow up: Cardiac evaluation of new onset atrial fibrillation, history of coronary artery disease, post CABG, PPM admitted for pneumonia Seen and examined by me and Dr. Rust Objective - Vital Signs/Intake and Output Vital Signs (last 24 hours): Temp Pulse Resp BP Pulse Ox 98.1 F 83 19 124/79 98 01/21/19 06:00 01/21/19 06:00 01/21/19 06:00 01/21/19 06:00 01/21/19 06:00 Intake and Output: 01/21/19 01/21/19 06:59 18:59 Intake Total 560 Output Total 920 Balance -360 - Medications Medications: Current Medications Amiodarone HCl (Cordarone) 200 mg PO DAILY [facility] Apixaban (Eliquis) 2.5 mg PO BID [facility]; Protocol Last Admin: 01/20/19 17:18 Dose: 2.5 mg Aspirin (Ecotrin) 81 mg PO DAILY [facility] Last Admin: 01/20/19 09:22 Dose: 81 mg Atorvastatin Calcium (Lipitor) 10 mg PO DIN [facility] Last Admin: 01/20/19 17:18 Dose: 10 mg Doxycycline Hyclate (Doryx) 100 mg PO Q12 [facility]; Protocol Stop: 01/29/19 22:01 Last Admin: 01/20/19 22:13 Dose: 100 mg Furosemide (Lasix) 40 mg IVP BID [facility] Last Admin: 01/20/19 17:18 Dose: 40 mg Gabapentin (Neurontin) 300 mg PO BID [facility]; Protocol Last Admin: 01/20/19 17:18 Dose: 300 mg Cefepime HCl (Maxipime 1gm) 1 gm in 100 mls @ 100 mls/hr IVPB Q8 [facility]; Protocol Stop: 01/27/19 22:01 Last Admin: 01/21/19 05:29 Dose: 100 mls/hr Insulin Human Lispro (Humalog Med) 0 units SC ACHS [facility]; Protocol Last Admin: 01/21/19 08:35 Dose: Not Given Levalbuterol HCl (Xopenex) 1.25 mg IH O1VFTRE [facility] Last Admin: 01/21/19 07:09 Dose: 1.25 mg Lisinopril (Zestril) 10 mg PO HS [facility] Last Admin: 01/19/19 22:30 Dose: 10 mg Metformin HCl (Glucophage) 500 mg PO BID [facility] Last Admin: 01/20/19 17:37 Dose: 500 mg Metoprolol Tartrate (Lopressor) 12.5 mg PO DAILY [facility] Last Admin: 01/20/19 09:23 Dose: 12.5 mg - Labs Labs: 01/21/19 06:30 01/21/19 06:30 - Constitutional Appears: Non-toxic, No Acute Distress - Head Exam Head Exam: NORMAL INSPECTION, NORMOCEPHALIC - Eye Exam Eye Exam: Normal appearance Pupil Exam: NORMAL ACCOMODATION - ENT Exam ENT Exam: Mucous Membranes Moist, Normal Exam - Respiratory Exam Respiratory Exam: Decreased Breath Sounds, Clear to Ausculation Bilateral, NORMAL BREATHING PATTERN - Cardiovascular Exam Cardiovascular Exam: REGULAR RHYTHM, +S1, +S2 Additional comments: PPM Converted to normal sinus rhythm - GI/Abdominal Exam GI & Abdominal Exam: Soft, Normal Bowel Sounds - Extremities Exam Extremities Exam: Full ROM, Normal Capillary Refill - Neurological Exam Neurological Exam: Alert, Awake, Oriented x3 - Psychiatric Exam Psychiatric exam: Normal Affect, Normal Mood - Skin Skin Exam: Dry, Normal Color, Warm Assessment and Plan - Assessment and Plan (Free Text) Assessment: An 83 year old male who came in to the ER due to bilateral leg edema. He was recently admitted at [facility] for pneumonia. History of hypertension, hyperlipidemia, COPD, PPM for sick sinus syndrome and complete heart block on 12/10/2017. coronary artery disease with CABG 12-15 years ago,Non STEMI. Cardiac cath done on 12/10/17 showed triple vessel disease,patent RODRÍGUEZ to LAD, patent SVG sequential to OM2,OM3, and left PDA but multiple stenosis in grafts not suitable for PCI due to high risk and bad outcome even with filter wire. LVEF 55%, no aortic valve gradient. Echo done on 12/11/17 showed LVEF 55%, trace Ar, mild valvular aortic stenosis, mild to moderate MR, mild to moderate valvular mitral stenosis, mild to moderate TR, RVSP 41mmHg, trace pulmonary valve regurg itation. New onset atrial fibrillation. rate controlled with IV Digoxin and Cardizem drip. Started on oral Amiodarone. Started on eliquis for anticoagulation. No distress.Echo done and showed mild to moderate concentric LVH, LVEF 55%, aortic valve is calcified and decrease opening,left coronary cusp is immobile. mild to moderate aortic valve stenosis, moderate mitral regurgitation MVA 1.5 cms2, moderate to severe tricuspid regurgitation RVSP 60 mmHg, mild to moderate pulmonic valve regurgitation. CT of chest showed right lower lobe pneumonia. Atrial fibrillation probably secondary to sepsis/p neumonia. Converted to normal sinus rhythm. Continue Amiodarone 200 mg daily. Continue Eliquis for 2 weeks. Possible discharge. follow up in office in 2 weeks. Plan: No distress Converted to normal sinus rhythm. Continue Amiodarone 200 mg daily. Continue Eliquis for 2 weeks. On Amiodarone 200 mg tilley, Eliquis 2.5 mg BID, ASa 81 mg daily, Lipitor 10 mg daily, Lasix 40 mg BID, Lisinopril 10 mg HS, Lopressor 12.5 mg daily Continue current treatment Continue current medications Continue IV antibiotics as ordered per ID Discontinue telemetry Possible discharge today Follow up in office in 2 weeks. Plan and treatment discussed with Dr. Rust
[2019-01-21] MEDS ORDERED: Potassium Chloride 20 mEq ER Tab PO ONE (09:40)
[2019-01-21 13:27] VITALS: BP 137/91; PULSE 79; RESP 20; TEMP 98.4
[2019-01-21 14:46] VITALS: O2SAT 97
--- NOTE | 2019-01-21 22:19 | PN ---
DATE: 01/21/2019 SUBJECTIVE: The patient is in bed in no acute distress. PHYSICAL EXAMINATION VITAL SIGNS: Temperature is 98, blood pressure is 133/78, respiratory rate of 18. HEENT: Unremarkable. NECK: Supple. LUNGS: Have decreased breath sounds. HEART: Normal S1, S2. ABDOMEN: Soft, nontender. LABORATORY DATA: Reveals a white count of 6.2, hemoglobin of 12, platelets of 217. Chemistries are noted. BUN of 15, creatinine of 0.8. Blood cultures are negative. ASSESSMENT AND PLAN: An 83-year-old male with hypertension, hyperlipidemia, depression, chronic obstructive lung disease, coronary artery disease, congestive heart failure, kidney disease, arthritis, admitted with congestive heart failure. CT angiography, which showed right lower lobe infiltrate as does the chest x-ray. No evidence of pulmonary emboli. The patient was in [facility] a few weeks ago with most likely acute congestive heart failure on top of chronic congestive heart failure with a right lower lobe associated pneumonia and normal procalcitonin. The patient had another procalcitonin which was also normal, may complete with p.o. antibiotics. Blood cultures are reported negative. Case discussed with the primary medical doctor. Elieser Villarreal MD
--- NOTE | 2019-01-22 08:32 | DS ---
HISTORY OF PRESENT ILLNESS: The patient is an 83-year-old who was seen in office because of increasing leg swelling and increasing shortness of breath. The patient was admitted almost a month ago in [facility]. He was treated for pneumonia. Because of increasing shortness of breath and leg swelling, presumptive diagnosis was pending CHF. He was also found to have irregular heart beat in office, so he was referred to emergency room, he was admitted on telemetry, he was diuresed. He was evaluated by spinning frame tender; started on Eliquis and amiodarone, seems to be doing well. PHYSICAL EXAMINATION: VITAL SIGNS: He is afebrile, pulse 80, respiration 19, and blood pressure 148/83. LUNGS: Bilateral fair airflow. Few soft crackle at bases. HEART: S1 and S2 audible. ABDOMEN: Soft, obese, and nontender. No rebound. No guarding. NEUROLOGIC: The patient is awake and alert; able to communicate. EXTREMITIES: Bilateral leg, +1 edema. LABORATORY DATA: WBC 6.2, hemoglobin 12.9, hematocrit 40, and platelet 217. Chemistry; sodium 139, potassium 3.6, chloride 103, CO2 of 29, BUN 15, creatinine 0.8, and blood sugar of 105. ASSESSMENT: 1. New onset of atrial fibrillation. 2. Resolving pneumonia. Procalcitonin is negative; does not seem like as he has active infection. 3. History of noninsulin-dependent diabetes. 4. Hypertension. 5. Chronic obstructive pulmonary disease. PLAN: The patient is going to be discharged today. I spoke to ID, no need for antibiotic upon discharge. He will be discharged home on amiodarone 200 mg daily, Eliquis 2.5 twice a day, 81 daily, Lipitor 10 mg daily, Lasix 40 mg twice a day, lisinopril 10 mg daily, Lopressor 12.5 daily, and he will follow up in office next week. He will follow up with Dr. Rust. Talia Tom MD
== END 2019-01-21 16:12 | disposition home or self-care (01) | DRG 193 ==
LOC: ED 14:45 → ERH 20:29 → 2RSO 23:14
PROVIDERS: ADMIT Internal Medicine; ATTEND Internal Medicine
DX: J18.1 Lobar pneumonia, unspecified organism (principal); I50.33 Acute on chronic diastolic (congestive) heart failure; I48.91 Unspecified atrial fibrillation; I48.92 Unspecified atrial flutter; J44.0 Chronic obstructive pulmonary disease with (acute) lower respiratory infection; I11.0 Hypertensive heart disease with heart failure; E11.9 Type 2 diabetes mellitus without complications; I25.10 Atherosclerotic heart disease of native coronary artery without angina pectoris; K21.9 Gastro-esophageal reflux disease without esophagitis; I08.3 Combined rheumatic disorders of mitral, aortic and tricuspid valves; E78.5 Hyperlipidemia, unspecified; F32.9 Major depressive disorder, single episode, unspecified; I25.2 Old myocardial infarction; Z87.891 Personal history of nicotine dependence; Z85.51 Personal history of malignant neoplasm of bladder; Z95.0 Presence of cardiac pacemaker; Z95.1 Presence of aortocoronary bypass graft; Z79.51 Long term (current) use of inhaled steroids; Z79.82 Long term (current) use of aspirin; Z79.84 Long term (current) use of oral hypoglycemic drugs; Z87.01 Personal history of pneumonia (recurrent)